=== PATIENT | female | born 1990 | race Caucasian/White ===

== ENCOUNTER 2019-06-11 02:25 | Inpatient (IN) | payer BC ==
[2019-06-11] MEDS ORDERED: Sodium Chloride 0.9% 10 ML Syringe FLUSH PRN ×2 (02:52→19:13)
[2019-06-11] MEDS ORDERED: Nalbuphine 10 MG/1 ML Vial IVPUSH PRN ×2 (02:52→19:13)
[2019-06-11] MEDS ORDERED: Oxytocin/Lactated Ringers 10 UNIT/1,000 ML BAG IV SCH ×2 (03:00)
[2019-06-11] MEDS: Lactated Ringers 1,000 ML IV SCH ×5 (03:25→18:51)
[2019-06-11] MEDS ORDERED: Ampicillin 2 GM in Sodium Chloride 0.9% 100 ML IV ONE (03:30)
[2019-06-11] MEDS ORDERED: ePHEDrine 50 MG/ML SDV IVPUSH PRN ×2 (04:12→21:45)
[2019-06-11] MEDS ORDERED: Ondansetron 4 MG/2 ML SDV IVPUSH PRN (04:12)
[2019-06-11] MEDS ORDERED: fentaNYL/Bupivacaine in NS PF 2 MCG-0.125% 250 ML Premix EPIDUR PRN (04:12)
--- NOTE | 2019-06-11 04:18 | PCM.PREANE ---
Preanesthetic Assessment - Procedure Proposed Procedure: BRYSON - Anesthesia/Transfusion/Family Hx Anesthesia History: Prior Anesthesia Without Reaction Family History of Anesthesia Reaction: No Transfusion History: No Prior Transfusion(s) Intubation History: Unknown - Review of Systems General: No Symptoms Pulmonary: No Symptoms Cardiovascular: No Symptoms Gastrointestinal: No Symptoms Neurological: No Symptoms Other: Reports: Anxiety - Physical Assessment NPO Status Date: 06/10/19 NPO Status Time: 19:00 Vital Signs: Last Vital Signs Temp 36.6 C 06/11/19 02:53 Pulse 100 06/11/19 02:53 Resp 16 06/11/19 02:53 BP 136/73 06/11/19 02:53 Pulse Ox Height: 1.68 m Weight: 101.151 kg ASA Class: 2 Mental Status: Alert & Oriented x3 Thyro-Mental Finger Breadths: 3 Mouth Opening Finger Breadths: 5 ROM/Head Extension: Full Lungs: Clear to Auscultation, Normal Respiratory Effort Cardiovascular: Regular Rate, Regular Rhythm - Lab Values: Laboratory Last Values WBC 12.56 K/mm3 (3.98-10.04) H 06/11/19 03:10 RBC 3.87 M/mm3 (3.98-5.22) L 06/11/19 03:10 Hgb 10.3 gm/dl (11.2-15.7) L 06/11/19 03:10 Hct 31.2 % (34.1-44.9) L 06/11/19 03:10 MCV 80.6 fl (79.4-94.8) 06/11/19 03:10 MCH 26.6 pg (25.6-32.2) 06/11/19 03:10 MCHC 33.0 g/dl (32.2-35.5) 06/11/19 03:10 RDW Std Deviation 42.2 fL (36.4-46.3) 06/11/19 03:10 Plt Count 244 K/mm3 (182-369) 06/11/19 03:10 MPV 9.3 fl (9.4-12.3) L 06/11/19 03:10 Neut % (Auto) 69.8 % (34.0-71.1) 06/11/19 03:10 Lymph % (Auto) 21.2 % (19.3-51.7) 06/11/19 03:10 [place] % (Auto) 8.1 % (4.7-12.5) 06/11/19 03:10 Eos % (Auto) 0.4 (0.7-5.8) L 06/11/19 03:10 Baso % (Auto) 0.2 % (0.1-1.2) 06/11/19 03:10 Neut # (Auto) 8.77 K/mm3 (1.56-6.13) H 06/11/19 03:10 Lymph # (Auto) 2.66 K/mm3 (1.18-3.74) 06/11/19 03:10 [place] # (Auto) 1.02 K/mm3 (0.24-0.36) H 06/11/19 03:10 Eos # (Auto) 0.05 K/mm3 (0.04-0.36) 06/11/19 03:10 Baso # (Auto) 0.02 K/mm3 (0.01-0.08) 06/11/19 03:10 - Allergies Allergies/Adverse Reactions: Allergies Allergy/AdvReac Type Severity Reaction Status Date / Time No Known Allergies Allergy Verified 06/11/19 02:57 - Blood Blood Available: Yes - Anesthesia Plan Free Text/Narrative:: medications: PNV only Pre-Op Medication Ordered: None - Acknowledgements Anesthesia Type Planned: Epidural Pt an Appropriate Candidate for the Planned Anesthesia: Yes Alternatives and Risks of Anesthesia Discussed w Pt/Guardian: Yes Pt/Guardian Understands and Agrees with Anesthesia Plan: Yes PreAnesthesia Questionnaire - Past Health History Medical/Surgical History: Denies 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 USE Smoking Status *Q: Never Smoker Second Hand Smoke Exposure: No Recreational Drug Use History: No - CURRENT (IN HOUSE) MEDS Current Meds: Current Medications Ampicillin Sodium 1 gm/ Sodium (Chloride) 100 mls @ 200 mls/hr IV Q4H PAM Lactated Ringer's (Ringers, Lactated) 1,000 mls @ 100 mls/hr IV ASDIRECTED PAM Last Admin: 06/11/19 03:49 Dose: 100 mls/hr Oxytocin/Lactated Ringer's (Pitocin In Lr 10 Units/1,000 Ml) 10 unit in 1,000 mls @ 12 mls/hr IV TITRATE PAM; Protocol Oxytocin/Lactated Ringer's (Pitocin In Lr 10 Units/1,000 Ml) 10 unit in 1,000 mls @ 500 mls/hr IV .CONTINUOUS PAM Nalbuphine HCl (Nubain) 10 mg IVPUSH Q2H PRN PRN Reason: Pain Sodium Chloride (Saline Flush) 10 ml FLUSH ASDIRECTED PRN PRN Reason: Keep Vein Open Discontinued Medications Ampicillin Sodium 2 gm/ Sodium (Chloride) 100 mls @ 200 mls/hr IV ONETIME ONE Stop: 06/11/19 03:59 Last Admin: 06/11/19 03:25 Dose: 200 mls/hr
[2019-06-11] MEDS: fentaNYL 100 MCG/2 ML SDV EPIDUR PRN ×3 (04:54→13:49)
[2019-06-11] MEDS: Ampicillin 1 GM in Sodium Chloride 0.9% 100 ML IV SCH ×3 (07:33→15:41)
--- NOTE | 2019-06-11 10:55 | PCM.SN ---
- Free Text/Narrative Note: 1040 called to bolus epidural 2ml fentanyl 10ml 0.25% bupivacaine PF per epidural increased gtt to 14ml/hr VSS out of room at 1054 no c/o.
[2019-06-11] MEDS ORDERED: Bupivacaine 0.25% 10 ML SDV ONE (12:00)
--- NOTE | 2019-06-11 13:52 | PCM.SN ---
- Free Text/Narrative Note: 1340 called to bolus epidural 2ml fentanyl 10ml 0.25% bupivacaine PF per epidural gtt at 14ml/hr VSS out of room at 1354 no c/o.
--- NOTE | 2019-06-11 18:22 | PCM.LDHP ---
L&D History of Present Illness - General Date of Service: 06/11/19 Admit Problem/Dx: Patient Status Order with Admit Dx/Problem 06/11/19 02:53 Patient Status [ADT] Routine Admission Diagnosis/Problem Admission Diagnosis/Problem - History of Present Illness Introduction:: 29 year old at 39w3d here in labor. 5 cm. Painful contractions. 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: Social & Family History - Family History Family Medical History: Noncontributory - Tobacco Use Smoking Status *Q: Never Smoker Second Hand Smoke Exposure: No - Recreational Drug Use Recreational Drug Use: No H&P Review of Systems - Review of Systems: Review Of Systems: See Below General: Reports: No Symptoms HEENT: Reports: No Symptoms Pulmonary: Reports: No Symptoms Cardiovascular: Reports: No Symptoms Gastrointestinal: Reports: No Symptoms Genitourinary: Reports: No Symptoms Musculoskeletal: Reports: No Symptoms Skin: Reports: No Symptoms Psychiatric: Reports: No Symptoms Neurological: Reports: No Symptoms Hematologic/Lymphatic: Reports: No Symptoms Immunologic: Reports: No Symptoms L&D Exam - Exam Exam: See Below - Vital Signs Vital Signs: Last Vital Signs Temp 36.6 C 06/11/19 02:53 Pulse 100 06/11/19 02:53 Resp 16 06/11/19 02:53 BP 136/73 06/11/19 02:53 Pulse Ox Weight: 101.151 kg - OB Specific Contraction Intensity: Moderate to Strong Movement: Active Heart Rate (FHR) Variability: Moderate (6-25 bmp) Presentation: Vertex - Humphreys Score Humphreys Score Cervix Position: Midposition Humphreys Score Consistency: Soft Humphreys Score Effacement: 51-70% Humphreys Score Dilation: > 5 cm Humphreys Score 's Station: -2 Humphreys Score Total: 9 - Exam General: Alert, Oriented HEENT: PERRLA, Conjunctiva Clear, EACs Clear, EOMI, Hearing Intact, Mucosa Moist & [place], Nares Patent, Normal Nasal Septum, Posterior Pharynx Clear, TMs Clear Neck: Supple, Trachea Midline Lungs: Clear to Auscultation, Normal Respiratory Effort Cardiovascular: Regular Rate, Regular Rhythm GI/Abdominal Exam: Normal Bowel Sounds, Soft, Non-Tender, No Organomegaly, No Distention, No Abnormal Bruit, No Mass, Pelvis Stable Rectal Exam: Normal Exam Back Exam: Normal Inspection, Full Range of Motion Extremities: Normal Inspection, Normal Range of Motion, Non-Tender, No Pedal Edema, Normal Capillary Refill Skin: Warm, Dry, Intact Neurological: Cranial Nerves Intact, Reflexes Equal Bilateral Psychiatric: Alert, Normal Affect, Normal Mood - Patient Data Lab Results Last 24 hrs: Laboratory Results - last 24 hr 06/11/19 06/11/19 Range/Units 03:10 03:10 WBC 12.56 H (3.98-10.04) K/mm3 RBC 3.87 L (3.98-5.22) M/mm3 Hgb 10.3 L (11.2-15.7) gm/dl Hct 31.2 L (34.1-44.9) % MCV 80.6 (79.4-94.8) fl MCH 26.6 (25.6-32.2) pg MCHC 33.0 (32.2-35.5) g/dl RDW Std Deviation 42.2 (36.4-46.3) fL Plt Count 244 (182-369) K/mm3 MPV 9.3 L (9.4-12.3) fl Neut % (Auto) 69.8 (34.0-71.1) % Lymph % (Auto) 21.2 (19.3-51.7) % [place] % (Auto) 8.1 (4.7-12.5) % Eos % (Auto) 0.4 L (0.7-5.8) Baso % (Auto) 0.2 (0.1-1.2) % Neut # (Auto) 8.77 H (1.56-6.13) K/mm3 Lymph # (Auto) 2.66 (1.18-3.74) K/mm3 [place] # (Auto) 1.02 H (0.24-0.36) K/mm3 Eos # (Auto) 0.05 (0.04-0.36) K/mm3 Baso # (Auto) 0.02 (0.01-0.08) K/mm3 RPR Non-reactive (NONREACTIVE) Result Diagrams: 06/11/19 03:10 Problem List Initiated/Reviewed/Updated: Yes Orders Last 24hrs: Active Orders 24 hr Category Date Time Status Patient Status [ADT] Routine ADT 06/11/19 02:53 Active Activity as Tolerated [RC] PFP Care 06/11/19 02:53 Active Communication Order [RC] ASDIRECTED Care 06/11/19 02:53 Active Heart Tones [RC] ASDIRECTED Care 06/11/19 02:53 Active Non Stress Test [RC] PER UNIT ROUTINE Care 06/11/19 02:53 Active Notify Provider [RC] ASDIRECTED Care 06/11/19 04:11 Active Notify Provider [RC] PFP Care 06/11/19 02:53 Active Notify Provider [RC] PRN Care 06/11/19 02:53 Active Oxygen Therapy [RC] ASDIRECTED Care 06/11/19 04:11 Active Peripheral IV Care [RC] . DIRECTED Care 06/11/19 02:53 Active Pulse Oximetry [RC] ASDIRECTED Care 06/11/19 04:11 Active Vital Signs [RC] PER UNIT ROUTINE Care 06/11/19 02:53 Active Regular Diet [DIET] Diet 06/11/19 Breakfast Active Ampicillin 1 gm Med 06/11/19 07:30 Active Sodium Chloride 0.9% [Normal Saline] 100 ml IV Q4H Bupivicaine/fentaNYL/NS [fentaNYL/Bupivacaine/NS 2 MCG- Med 06/11/19 04:12 Active 0.125% 250 ML] 2 mcg EPIDUR CONTINUOUS PRN Lactated Ringers [Ringers, Lactated] 1,000 ml Med 06/11/19 03:00 Active IV ASDIRECTED Nalbuphine [Nubain] Med 06/11/19 02:52 Active 10 mg IVPUSH Q2H PRN Ondansetron [Zofran] Med 06/11/19 04:12 Active 4 mg IVPUSH ONETIME PRN Oxytocin/Lactated Ringers [Pitocin in LR 10 Units/1,000 Med 06/11/19 03:00 Active ML] 10 unit in 1,000 ml IV .CONTINUOUS Oxytocin/Lactated Ringers [Pitocin in LR 10 Units/1,000 Med 06/11/19 03:00 Active ML] 10 unit in 1,000 ml IV TITRATE Sodium Chloride 0.9% [Saline Flush] Med 06/11/19 02:52 Active 10 ml FLUSH ASDIRECTED PRN ePHEDrine [ePHEDrine sulfate] Med 06/11/19 04:12 Active 5 mg IVPUSH ASDIRECTED PRN fentaNYL [Sublimaze] Med 06/11/19 04:12 Active 100 mcg EPIDUR Q3H PRN Electronic Heart Tones Ext w TOCO [WOMSER] Oth 06/11/19 02:53 Ordered Routine Electronic Heart Tones Internal [WOMSER] Per Unit Ot 06/11/19 02:53 Ordered Routine Peripheral IV Insertion Adult [OM.PC] Routine Ot 06/11/19 02:53 Ordered Resuscitation Status Routine Resus Stat 06/11/19 02:52 Ordered Medication Orders Ephedrine Sulfate (Ephedrine Sulfate) 5 mg IVPUSH ASDIRECTED PRN PRN Reason: Hypotension Fentanyl (Sublimaze) 100 mcg EPIDUR Q3H PRN PRN Reason: Pain Last Admin: 06/11/19 13:49 Dose: 100 mcg Admin: 06/11/19 10:48 Dose: 100 mcg Admin: 06/11/19 04:54 Dose: 100 mcg Fentanyl/Bupivacaine HCl (Fentanyl/Bupivacaine/Ns 2 Mcg-0.125% 250 Ml) 2 mcg EPIDUR CONTINUOUS PRN PRN Reason: Pain Last Admin: 06/11/19 04:54 Dose: 2 mcg Ampicillin Sodium 1 gm/ Sodium (Chloride) 100 mls @ 200 mls/hr IV Q4H [facility] Last Admin: 06/11/19 15:41 Dose: 200 mls/hr Infusion: 06/11/19 12:20 Dose: 200 mls/hr Admin: 06/11/19 11:50 Dose: 200 mls/hr Infusion: 06/11/19 08:03 Dose: 200 mls/hr Admin: 06/11/19 07:33 Dose: 200 mls/hr Lactated Ringer's (Ringers, Lactated) 1,000 mls @ 100 mls/hr IV ASDIRECTED PAM Last Admin: 06/11/19 10:36 Dose: 100 mls/hr Infusion: 06/11/19 10:36 Dose: 100 mls/hr Admin: 06/11/19 05:01 Dose: 100 mls/hr Infusion: 06/11/19 05:01 Dose: 100 mls/hr Admin: 06/11/19 03:49 Dose: 100 mls/hr Infusion: 06/11/19 03:49 Dose: 100 mls/hr Admin: 06/11/19 03:25 Dose: 100 mls/hr Oxytocin/Lactated Ringer's (Pitocin In Lr 10 Units/1,000 Ml) 10 unit in 1,000 mls @ 12 mls/hr IV TITRATE PAM; Protocol Last Titration: 06/11/19 16:30 Dose: 11 munits/min, 66 mls/hr Titration: 06/11/19 15:00 Dose: 10 munits/min, 60 mls/hr Titration: 06/11/19 14:16 Dose: 9 munits/min, 54 mls/hr Titration: 06/11/19 13:00 Dose: 8 munits/min, 48 mls/hr Titration: 06/11/19 12:30 Dose: 6 munits/min, 36 mls/hr Titration: 06/11/19 11:20 Dose: 4 munits/min, 24 mls/hr Admin: 06/11/19 10:36 Dose: 2 munits/min, 12 mls/hr Oxytocin/Lactated Ringer's (Pitocin In Lr 10 Units/1,000 Ml) 10 unit in 1,000 mls @ 500 mls/hr IV .CONTINUOUS PAM Nalbuphine HCl (Nubain) 10 mg IVPUSH Q2H PRN PRN Reason: Pain Ondansetron HCl (Zofran) 4 mg IVPUSH ONETIME PRN PRN Reason: Nausea/Vomiting Last Admin: 06/11/19 13:18 Dose: 4 mg Sodium Chloride (Saline Flush) 10 ml FLUSH ASDIRECTED PRN PRN Reason: Keep Vein Open Assessment/Plan Comment:: Term labor. Admit. CBC. IVF. Anesthesia per patient desire.
--- NOTE | 2019-06-11 19:06 | PCM.SN ---
- Free Text/Narrative Note: Patient pushing x3 hours. Initial descent of head but over last 45 minutes minimal progress. Risks benefits and alternatives discussed, will proceed with section.
[2019-06-11] MEDS: Metoclopramide 10 MG/2 ML SDV ONE ×2 (19:11→19:13)
[2019-06-11] MEDS: Citric Acid/Sodium Citrate Solution 30 ML Cup ONE ×2 (19:11→19:13)
[2019-06-11] MEDS ORDERED: Citric Acid/Sodium Citrate Solution 30 ML Cup PO ONE ×2 (19:12→19:13)
[2019-06-11] MEDS ORDERED: Metoclopramide 10 MG/2 ML SDV IVPUSH ONE ×2 (19:12→19:13)
[2019-06-11] MEDS ORDERED: Lactated Ringers 1,000 ML IV SCH (19:15)
[2019-06-11] MEDS ORDERED: ceFAZolin 1 GM Vial ONE ×2 (19:18→19:19)
[2019-06-11] MEDS ORDERED: Morphine PF 10 MG/10 ML SDV ONE (19:18)
[2019-06-11] MEDS ORDERED: Oxytocin 10 Units/1 ML SDV ONE (19:20)
[2019-06-11] MEDS ORDERED: Ketorolac 30 MG/ML SDV ONE (19:20)
[2019-06-11] MEDS ORDERED: Lidocaine 2% with EPINEPHrine 1:200,000 20 ML SDV ONE (19:21)
[2019-06-11] MEDS ORDERED: Bupivacaine 0.5% 30 ML SDV ONE (19:22)
[2019-06-11] MEDS ORDERED: Methylergonovine 0.2 MG/1 ML Amp ONE (20:05)
[2019-06-11] MEDS ORDERED: Phenylephrine/Normal Saline 100 MCG/ML 10 ML Syringe ONE (20:16)
[2019-06-11] MEDS ORDERED: diphenhydrAMINE 50 MG/ML SDV IVPUSH PRN ×2 (20:48→21:45)
--- NOTE | 2019-06-11 20:49 | PCM.POSTAN ---
POST ANESTHESIA ASSESSMENT - MENTAL STATUS Mental Status: Alert, Oriented - VITAL SIGNS Vital Signs: Last Vital Signs Temp 36.6 C 06/11/19 02:53 Pulse 100 06/11/19 02:53 Resp 16 06/11/19 02:53 BP 136/73 06/11/19 02:53 Pulse Ox - RESPIRATORY Respiratory Status: Respiratory Rate WNL, Airway Patent, O2 Saturation Stable, Supplemental Oxygen - CARDIOVASCULAR CV Status: Pulse Rate WNL, Blood Pressure Stable - GASTROINTESTINAL GI Status: No Symptoms - PAIN Pain Score: 0 - POST OP HYDRATION Hydration Status: Adequate & Stable - OBSERVATIONS Free Text/Narrative:: no anesthesia complications noted
--- NOTE | 2019-06-11 20:52 | PCM.OPNOTE ---
- General Post-Op/Procedure Note Date of Surgery/Procedure: 06/11/19 Operative Procedure(s): primary section Findings: Viable male, weight 10#1oz, 9/9 APGARS at 1960. Pre Op Diagnosis: failure to descend Post-Op Diagnosis: Same Anesthesia Technique: Spinal Primary Surgeon: Priya Choi Anesthesia Provider: Jeancarlos Dee Press Machine Operator: Serene Sotomayor Fluid Replacement, Intraop: 2,000 Output, Urine Amount: 100 EBL in mLs: 1,100 Complications: None Condition: Good Free Text/Narrative:: Intake & Output 06/11/19 06/11/19 06/11/19 06:59 14:59 22:59 Intake Total 4360 Output Total 150 Balance 4360 -150 The patient was taken to the operating room where epidural anesthesia was dosed to surgical levels without difficulty. The patient was prepped and draped in the usual sterile fashion in the dorsal supine position with a leftward tilt. A Pfannenstiel skin incision was made with the scalpel and carried through to the underlying layer of fascia. The fascia was incised in the midline and extended laterally using Finn scissors. Candi clamps were used to elevate the superior aspect of the fascial incision, which was elevated, and the underlying rectus muscles were dissected off bluntly and using Finn scissors. Attention was then turned to the inferior aspect of the fascial incision, which in similar fashion was grasped with Candi clamps, elevated, and the underlying rectus muscles were dissected off bluntly and using the finn. The rectus muscles were dissected in the midline. The peritoneum was entered bluntly; this incision was extended superiorly and inferiorly with good visualization of the bladder. The bladder blade was inserted. The vesicouterine peritoneum was identified and entered sharply using Metzenbaum scissors. This incision was extended laterally and the bladder flap was created digitally. The bladder blade was reinserted. The lower uterine segment was incised in a transverse fashion using the scalpel and with digital traction. Clear fluid was noted. The infant was subsequently delivered by flexing the head to the incision. Body and shoulders followed without difficulty. The cord was clamped and cut. 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 The placenta was delivered spontaneously intact with a three-vessel cord noted. The uterus was exteriorized and cleared of all clots and debris. The uterine incision was repaired in 2 layers using 0 monocryl. Hemostasis was visualized. One additional figure of eight used at right aspect of incision to render hemostasis. Hemostasis was visualized bilaterally. The uterus was returned to the abdomen. The uterine incision was reexamined and it was noted to be hemostatic. The pelvis was copiously irrigated. The fascia was closed with 1 PDS suture, and the skin was closed with 3-0 monocryl. Sponge, lap, and instrument counts were correct x2. The patient was stable at the completion of the procedure and was subsequently transferred to the recovery room in stable condition.
[2019-06-11] MEDS ORDERED: Acetaminophen/oxyCODONE 325-5 MG Tab PO PRN (21:45)
[2019-06-11] MEDS ORDERED: Lanolin 100% Cream 7 GM Tube TOP PRN (21:45)
[2019-06-11] MEDS ORDERED: Naloxone 0.4 MG/ML SDV IVPUSH PRN (21:45)
[2019-06-11] MEDS ORDERED: Dextrose 5%-Lactated Ringers 1,000 ML IV SCH (21:45)
[2019-06-12] MEDS: Ketorolac 30 MG/ML SDV IVPUSH SCH ×3 (02:15→16:05)
--- NOTE | 2019-06-12 06:37 | PCM.PNPP ---
- General Info Date of Service: 06/12/19 Functional Status: Reports: Pain Controlled - Review of Systems General: Reports: No Symptoms HEENT: Reports: No Symptoms Pulmonary: Reports: No Symptoms Cardiovascular: Reports: No Symptoms Gastrointestinal: Reports: No Symptoms Genitourinary: Reports: No Symptoms Musculoskeletal: Reports: No Symptoms Skin: Reports: No Symptoms Neurological: Reports: No Symptoms Psychiatric: Reports: No Symptoms - General Info Date of Service: 06/12/19 - Patient Data Vital Signs - Most Recent: Last Vital Signs Temp 37.1 C 06/11/19 21:40 Pulse 88 06/12/19 04:26 Resp 18 06/11/19 21:40 BP 104/70 06/12/19 04:26 Pulse Ox 98 06/12/19 04:26 Weight - Most Recent: 101.151 kg I&O - Last 24 Hours: Intake & Output 06/11/19 06/11/19 06/12/19 14:59 22:59 06:59 Intake Total 4360 3000 Output Total 350 450 Balance 4360 2650 -450 Lab Results - Last 24 Hours: Laboratory Results - last 24 hr 06/11/19 06/11/19 Range/Units 03:10 03:10 RPR Non-reactive (NONREACTIVE) Blood Type O POSITIVE Gel Antibody Screen Negative Med Orders - Current: Current Medications Diphenhydramine HCl (Benadryl) 25 mg IVPUSH Q6H PRN PRN Reason: Itching or Nausea Emollient Ointment (Lansinoh Hpa) 0 gm TOP ASDIRECTED PRN PRN Reason: Sore Nipples Ephedrine Sulfate (Ephedrine Sulfate) 5 mg IVPUSH SEECOMMENT PRN PRN Reason: Other Ibuprofen (Motrin) 600 mg PO Q6H PRN PRN Reason: mild pain or fever Ketorolac Tromethamine (Toradol) 30 mg IVPUSH Q6H PAM Stop: 06/12/19 14:01 Last Admin: 06/12/19 02:15 Dose: 30 mg Naloxone HCl (Narcan) 0.1 mg IVPUSH SEECOMMENT PRN PRN Reason: Respiratory Depression Oxycodone/Acetaminophen (Percocet 325-5 Mg) 2 tab PO Q6H PRN PRN Reason: Pain (moderate 4-6) Discontinued Medications Bupivacaine HCl (Marcaine 0.5%) Confirm Administered Dose 30 ml .ROUTE .STK-MED ONE Stop: 06/11/19 19:23 Last Admin: 06/11/19 19:56 Dose: 20 ml Cefazolin Sodium (Ancef) Confirm Administered Dose 2 gm .ROUTE .STK-MED ONE Stop: 06/11/19 19:19 Cefazolin Sodium (Ancef) Confirm Administered Dose 2 gm .ROUTE .STK-MED ONE Stop: 06/11/19 19:20 Citric Acid/Sodium Citrate (Bicitra Solution) Confirm Administered Dose 30 ml .ROUTE .STK-MED ONE Stop: 06/11/19 19:06 Last Admin: 06/11/19 19:13 Dose: Not Given Citric Acid/Sodium Citrate (Bicitra Solution) 30 ml PO ONETIME ONE Stop: 06/11/19 19:13 Last Admin: 06/11/19 19:21 Dose: 30 ml Citric Acid/Sodium Citrate (Bicitra Solution) 30 ml PO ONETIME ONE Stop: 06/11/19 19:14 Diphenhydramine HCl (Benadryl) 25 mg IVPUSH Q6H PRN PRN Reason: Itching Ephedrine Sulfate (Ephedrine Sulfate) 5 mg IVPUSH ASDIRECTED PRN PRN Reason: Hypotension Fentanyl (Sublimaze) 100 mcg EPIDUR Q3H PRN PRN Reason: Pain Last Admin: 06/11/19 13:49 Dose: 100 mcg Fentanyl/Bupivacaine HCl (Fentanyl/Bupivacaine/Ns 2 Mcg-0.125% 250 Ml) 2 mcg EPIDUR CONTINUOUS PRN PRN Reason: Pain Last Admin: 06/11/19 04:54 Dose: 2 mcg Ampicillin Sodium 2 gm/ Sodium (Chloride) 100 mls @ 200 mls/hr IV ONETIME ONE Stop: 06/11/19 03:59 Last Admin: 06/11/19 03:25 Dose: 200 mls/hr Ampicillin Sodium 1 gm/ Sodium (Chloride) 100 mls @ 200 mls/hr IV Q4H [facility] Last Admin: 06/11/19 15:41 Dose: 200 mls/hr Lactated Ringer's (Ringers, Lactated) 1,000 mls @ 100 mls/hr IV ASDIRECTED PAM Last Admin: 06/11/19 18:51 Dose: 250 mls/hr Oxytocin/Lactated Ringer's (Pitocin In Lr 10 Units/1,000 Ml) 10 unit in 1,000 mls @ 12 mls/hr IV TITRATE PAM; Protocol Last Titration: 06/11/19 16:30 Dose: 11 munits/min, 66 mls/hr Oxytocin/Lactated Ringer's (Pitocin In Lr 10 Units/1,000 Ml) 10 unit in 1,000 mls @ 500 mls/hr IV .CONTINUOUS PAM Lactated Ringer's (Ringers, Lactated) 1,000 mls @ 125 mls/hr IV ASDIRECTED PAM Dextrose/Lactated Ringer's (Dextrose 5%-Lactated Ringers) 1,000 mls @ 125 mls/ hr IV ASDIRECTED PAM Stop: 06/12/19 05:44 Last Admin: 06/12/19 02:17 Dose: 125 mls/hr Ketorolac Tromethamine (Toradol) Confirm Administered Dose 30 mg .ROUTE .STK- MED ONE Stop: 06/11/19 19:21 Lidocaine/Epinephrine (Xylocaine-Mpf 2%-Epi 1:200,000) Confirm Administered Dose 20 ml .ROUTE .STK-MED ONE Stop: 06/11/19 19:22 Methylergonovine Maleate (Methergine) Confirm Administered Dose 0.2 mg .ROUTE .STK-MED ONE Stop: 06/11/19 20:06 Last Admin: 06/11/19 20:10 Dose: 0.2 mg Metoclopramide HCl (Reglan) Confirm Administered Dose 10 mg .ROUTE .STK-MED ONE Stop: 06/11/19 19:06 Last Admin: 06/11/19 19:13 Dose: Not Given Metoclopramide HCl (Reglan) 10 mg IVPUSH ONETIME ONE Stop: 06/11/19 19:13 Last Admin: 06/11/19 19:21 Dose: 10 mg Metoclopramide HCl (Reglan) 10 mg IVPUSH ONETIME ONE Stop: 06/11/19 19:14 Morphine Sulfate (Duramorph Pf) Confirm Administered Dose 10 mg .ROUTE .STK-MED ONE Stop: 06/11/19 19:19 Nalbuphine HCl (Nubain) 10 mg IVPUSH Q2H PRN PRN Reason: Pain Nalbuphine HCl (Nubain) 10 mg IVPUSH Q2H PRN PRN Reason: Pain Ondansetron HCl (Zofran) 4 mg IVPUSH ONETIME PRN PRN Reason: Nausea/Vomiting Last Admin: 06/11/19 13:18 Dose: 4 mg Oxytocin (Pitocin) Confirm Administered Dose 10 unit .ROUTE .STK-MED ONE Stop: 06/11/19 19:21 Phenylephrine HCl (Phenylephrine In Ns 100 Mcg/Ml) Confirm Administered Dose 1 mg .ROUTE .STK-MED ONE Stop: 06/11/19 20:17 Sodium Chloride (Saline Flush) 10 ml FLUSH ASDIRECTED PRN PRN Reason: Keep Vein Open Sodium Chloride (Saline Flush) 10 ml FLUSH ASDIRECTED PRN PRN Reason: Keep Vein Open - Interaction Disposition, : to Nursery Support Person: - Recovery Exam Fundal Tone: Firm Fundal Level: 1 Fingerbreadths Below Umbilicus Fundal Placement: Midline Lochia Amount: Moderate Lochia Color: Rubra/Red Perineum Description: Edematous Bladder Status: Indwelling Catheter in Place Urinary Elimination: Indwelling Catheter - Exam General: Alert, Oriented HEENT: Pupils Equal Neck: Supple Lungs: Clear to Auscultation, Normal Respiratory Effort Cardiovascular: Regular Rate, Regular Rhythm GI/Abdominal Exam: Normal Bowel Sounds, Soft, Non-Tender, No Organomegaly, No Distention, No Abnormal Bruit, No Mass, Pelvis Stable Extremities: Normal Inspection, Normal Range of Motion, Non-Tender, No Pedal Edema, Normal Capillary Refill Skin: Warm, Dry, Intact Neurological: No New Focal Deficit - Problem List Review Problem List Initiated/Reviewed/Updated: Yes - My Orders Last 24 Hours: My Active Orders 06/11/19 19:14 Heart Tones [RC] PER UNIT ROUTINE Vital Signs [RC] PFP 06/11/19 19:15 Peripheral IV Care [RC] . DIRECTED 06/11/19 19:45 Insert Garcia Catheter [Insert Urinary Catheter] [OM.PC] Q24H 06/11/19 21:21 Urinary Catheter Assessment [RC] ASDIRECTED 06/11/19 21:45 Communication Order [RC] PER UNIT ROUTINE Communication Order [RC] PER UNIT ROUTINE Communication Order [RC] PER UNIT ROUTINE Notify Provider Intake and Out [RC] ASDIRECTED Vital Signs [RC] PER UNIT ROUTINE Acetaminophen/oxyCODONE [Percocet 325-5 MG] 2 tab PO Q6H PRN Lanolin [Lansinoh HPA] See Dose Instructions TOP ASDIRECTED PRN Naloxone [Narcan] 0.1 mg IVPUSH SEECOMMENT PRN diphenhydrAMINE [Benadryl] 25 mg IVPUSH Q6H PRN ePHEDrine [ePHEDrine sulfate] 5 mg IVPUSH SEECOMMENT PRN Assess Lochia [WOMSER] Per Unit Routine Assess Uterine Involution [WOMSER] Per Unit Routine Medication Administration Instruction [OM.PC] Routine 06/11/19 Breakfast Regular Diet [DIET] 06/12/19 02:00 Ketorolac [Toradol] 30 mg IVPUSH Q6H 06/12/19 05:12 CBC WITH AUTO DIFF [HEME] AM 06/12/19 20:00 Ibuprofen [Motrin] 600 mg PO Q6H PRN 06/12/19 20:54 Urinary Catheter Removal [RC] Per Unit Routine - Assessment Assessment:: Term labor, failure to descend with pushing and 1ltcs of 10#1oz infant. Doing well. More than average EBL. Asymptomatic. Await CBC - Plan Plan:: Term labor. Admit. CBC. IVF. Anesthesia per patient desire.
--- NOTE | 2019-06-12 09:02 | PCM48HPAN ---
Post Anesthesia Note - EVALUATION WITHIN 48HRS OF ANESTHETIC Vital Signs in Normal Range: Yes Patient Participated in Evaluation: Yes Respiratory Function Stable: Yes Airway Patent: Yes Cardiovascular Function Stable: Yes Hydration Status Stable: Yes Pain Control Satisfactory: Yes Nausea and Vomiting Control Satisfactory: Yes Mental Status Recovered: Yes Vital Signs: Last Vital Signs Temp 37.1 C 06/11/19 21:40 Pulse 88 06/12/19 04:26 Resp 18 06/11/19 21:40 BP 104/70 06/12/19 04:26 Pulse Ox 98 06/12/19 04:26
[2019-06-12] MEDS: Ampicillin 1 GM in Sodium Chloride 0.9% 100 ML IV SCH (09:55)
[2019-06-12] MEDS ORDERED: Sodium Chloride 0.9% 500 ML IV ONE (12:00)
[2019-06-12] MEDS: Ibuprofen 600 MG Tab PO PRN (22:14)
[2019-06-13] MEDS: Ibuprofen 600 MG Tab PO PRN ×3 (04:48→19:07)
--- NOTE | 2019-06-13 06:44 | PCM.PNPP ---
- General Info Date of Service: 06/13/19 Subjective Update: Somewhat better energy. Feeling improved. Pain controlled. Significant issues with nursing. Functional Status: Reports: Pain Controlled - Review of Systems General: Reports: Other (less dizzy) HEENT: Reports: No Symptoms Pulmonary: Reports: No Symptoms Cardiovascular: Reports: No Symptoms Gastrointestinal: Reports: No Symptoms Genitourinary: Reports: No Symptoms Musculoskeletal: Reports: No Symptoms Skin: Reports: No Symptoms Neurological: Reports: No Symptoms Psychiatric: Reports: No Symptoms - General Info Date of Service: 06/13/19 - Patient Data Vital Signs - Most Recent: Last Vital Signs Temp 36.7 C 06/13/19 02:41 Pulse 91 06/13/19 02:41 Resp 16 06/13/19 02:41 BP 110/61 06/13/19 02:41 Pulse Ox 97 06/13/19 02:41 Weight - Most Recent: 101.151 kg I&O - Last 24 Hours: Intake & Output 06/12/19 06/12/19 06/13/19 14:59 22:59 06:59 Intake Total 180 660 Output Total 250 950 Balance -70 -290 Lab Results - Last 24 Hours: Laboratory Results - last 24 hr 06/11/19 06/12/19 06/12/19 Range/Units 03:10 05:12 14:35 WBC 18.60 H (3.98-10.04) K/mm3 RBC 2.65 L (3.98-5.22) M/mm3 Hgb 6.8 L* D (11.2-15.7) gm/dl Hct 22.0 L (34.1-44.9) % MCV 83.0 (79.4-94.8) fl MCH 25.7 (25.6-32.2) pg MCHC 30.9 L (32.2-35.5) g/dl RDW Std Deviation 42.6 (36.4-46.3) fL Plt Count 214 (182-369) K/mm3 MPV 9.8 (9.4-12.3) fl Neut % (Auto) 80.2 H (34.0-71.1) % Lymph % (Auto) 13.8 L (19.3-51.7) % [place] % (Auto) 5.5 (4.7-12.5) % Eos % (Auto) 0.1 L (0.7-5.8) Baso % (Auto) 0.1 (0.1-1.2) % Neut # (Auto) 14.92 H (1.56-6.13) K/mm3 Lymph # (Auto) 2.57 (1.18-3.74) K/mm3 [place] # (Auto) 1.02 H (0.24-0.36) K/mm3 Eos # (Auto) 0.01 L (0.04-0.36) K/mm3 Baso # (Auto) 0.02 (0.01-0.08) K/mm3 Manual Slide Review Abnormal smear Urine Color Yellow (Yellow) Urine Appearance Turbid H (Clear) Urine pH 5.5 (5.0-8.0) Ur Specific Nabb > or = 1.030 (1.005-1.030) Urine Protein Trace H (Negative) Urine Glucose (UA) Negative (Negative) Urine Ketones Negative (Negative) Urine Occult Blood 2+ H (Negative) Urine Nitrite Negative (Negative) Urine Bilirubin Negative (Negative) Urine Urobilinogen 0.2 (0.2-1.0) Ur Leukocyte Esterase Negative (Negative) Urine RBC 5-10 H (0-5) /hpf Urine WBC 5-10 H (0-5) /hpf Ur Squamous Epith Cells 0-5 (0-5) /hpf Urine Bacteria Few (FEW) /hpf Urine Mucus Many H (FEW) /hpf Blood Type O POSITIVE Gel Antibody Screen Negative Crossmatch See Detail 06/13/19 Range/Units 05:30 WBC 16.91 H (3.98-10.04) K/mm3 RBC 2.65 L (3.98-5.22) M/mm3 Hgb 7.1 L* (11.2-15.7) gm/dl Hct 22.2 L (34.1-44.9) % MCV 83.8 (79.4-94.8) fl MCH 26.8 (25.6-32.2) pg MCHC 32.0 L (32.2-35.5) g/dl RDW Std Deviation 43.3 (36.4-46.3) fL Plt Count 191 (182-369) K/mm3 MPV 9.4 (9.4-12.3) fl Neut % (Auto) 76.8 H (34.0-71.1) % Lymph % (Auto) 16.0 L (19.3-51.7) % [place] % (Auto) 6.2 (4.7-12.5) % Eos % (Auto) 0.5 L (0.7-5.8) Baso % (Auto) 0.1 (0.1-1.2) % Neut # (Auto) 13.00 H (1.56-6.13) K/mm3 Lymph # (Auto) 2.70 (1.18-3.74) K/mm3 [place] # (Auto) 1.04 H (0.24-0.36) K/mm3 Eos # (Auto) 0.09 (0.04-0.36) K/mm3 Baso # (Auto) 0.02 (0.01-0.08) K/mm3 Manual Slide Review Abnormal smear Urine Color (Yellow) Urine Appearance (Clear) Urine pH (5.0-8.0) Ur Specific Nabb (1.005-1.030) Urine Protein (Negative) Urine Glucose (UA) (Negative) Urine Ketones (Negative) Urine Occult Blood (Negative) Urine Nitrite (Negative) Urine Bilirubin (Negative) Urine Urobilinogen (0.2-1.0) Ur Leukocyte Esterase (Negative) Urine RBC (0-5) /hpf Urine WBC (0-5) /hpf Ur Squamous Epith Cells (0-5) /hpf Urine Bacteria (FEW) /hpf Urine Mucus (FEW) /hpf Blood Type Gel Antibody Screen Crossmatch Med Orders - Current: Current Medications Diphenhydramine HCl (Benadryl) 25 mg IVPUSH Q6H PRN PRN Reason: Itching or Nausea Emollient Ointment (Lansinoh Hpa) 0 gm TOP ASDIRECTED PRN PRN Reason: Sore Nipples Ephedrine Sulfate (Ephedrine Sulfate) 5 mg IVPUSH SEECOMMENT PRN PRN Reason: Other Ibuprofen (Motrin) 600 mg PO Q6H PRN PRN Reason: mild pain or fever Last Admin: 06/13/19 04:48 Dose: 600 mg Naloxone HCl (Narcan) 0.1 mg IVPUSH SEECOMMENT PRN PRN Reason: Respiratory Depression Oxycodone/Acetaminophen (Percocet 325-5 Mg) 2 tab PO Q6H PRN PRN Reason: Pain (moderate 4-6) Discontinued Medications Bupivacaine HCl (Marcaine 0.5%) Confirm Administered Dose 30 ml .ROUTE .STK-MED ONE Stop: 06/11/19 19:23 Last Admin: 06/11/19 19:56 Dose: 20 ml Bupivacaine HCl (Sensorcaine-Mpf 0.25%) 10 ml .ROUTE .STK-MED ONE Stop: 06/11/19 12:01 Cefazolin Sodium (Ancef) Confirm Administered Dose 2 gm .ROUTE .STK-MED ONE Stop: 06/11/19 19:19 Cefazolin Sodium (Ancef) Confirm Administered Dose 2 gm .ROUTE .STK-MED ONE Stop: 06/11/19 19:20 Citric Acid/Sodium Citrate (Bicitra Solution) Confirm Administered Dose 30 ml .ROUTE .STK-MED ONE Stop: 06/11/19 19:06 Last Admin: 06/11/19 19:13 Dose: Not Given Citric Acid/Sodium Citrate (Bicitra Solution) 30 ml PO ONETIME ONE Stop: 06/11/19 19:13 Last Admin: 06/11/19 19:21 Dose: 30 ml Citric Acid/Sodium Citrate (Bicitra Solution) 30 ml PO ONETIME ONE Stop: 06/11/19 19:14 Last Admin: 06/12/19 09:55 Dose: Not Given Diphenhydramine HCl (Benadryl) 25 mg IVPUSH Q6H PRN PRN Reason: Itching Ephedrine Sulfate (Ephedrine Sulfate) 5 mg IVPUSH ASDIRECTED PRN PRN Reason: Hypotension Fentanyl (Sublimaze) 100 mcg EPIDUR Q3H PRN PRN Reason: Pain Last Admin: 06/11/19 13:49 Dose: 100 mcg Fentanyl/Bupivacaine HCl (Fentanyl/Bupivacaine/Ns 2 Mcg-0.125% 250 Ml) 2 mcg EPIDUR CONTINUOUS PRN PRN Reason: Pain Last Admin: 06/11/19 04:54 Dose: 2 mcg Ampicillin Sodium 2 gm/ Sodium (Chloride) 100 mls @ 200 mls/hr IV ONETIME ONE Stop: 06/11/19 03:59 Last Admin: 06/11/19 03:25 Dose: 200 mls/hr Ampicillin Sodium 1 gm/ Sodium (Chloride) 100 mls @ 200 mls/hr IV Q4H PAM Last Admin: 06/12/19 09:55 Dose: Not Given Lactated Ringer's (Ringers, Lactated) 1,000 mls @ 100 mls/hr IV ASDIRECTED PAM Last Admin: 06/11/19 18:51 Dose: 250 mls/hr Oxytocin/Lactated Ringer's (Pitocin In Lr 10 Units/1,000 Ml) 10 unit in 1,000 mls @ 12 mls/hr IV TITRATE PAM; Protocol Last Titration: 06/11/19 16:30 Dose: 11 munits/min, 66 mls/hr Oxytocin/Lactated Ringer's (Pitocin In Lr 10 Units/1,000 Ml) 10 unit in 1,000 mls @ 500 mls/hr IV .CONTINUOUS PAM Lactated Ringer's (Ringers, Lactated) 1,000 mls @ 125 mls/hr IV ASDIRECTED PAM Dextrose/Lactated Ringer's (Dextrose 5%-Lactated Ringers) 1,000 mls @ 125 mls/ hr IV ASDIRECTED PAM Stop: 06/12/19 05:44 Last Admin: 06/12/19 02:17 Dose: 125 mls/hr Sodium Chloride (Normal Saline) 500 mls @ 125 mls/hr IV ASDIRECTED ONE Stop: 06/12/19 15:59 Last Admin: 06/12/19 15:15 Dose: 250 mls/hr Ketorolac Tromethamine (Toradol) Confirm Administered Dose 30 mg .ROUTE .STK- MED ONE Stop: 06/11/19 19:21 Ketorolac Tromethamine (Toradol) 30 mg IVPUSH Q6H [facility] Stop: 06/12/19 14:01 Last Admin: 06/12/19 16:05 Dose: 30 mg Lidocaine/Epinephrine (Xylocaine-Mpf 2%-Epi 1:200,000) Confirm Administered Dose 20 ml .ROUTE .STK-MED ONE Stop: 06/11/19 19:22 Methylergonovine Maleate (Methergine) Confirm Administered Dose 0.2 mg .ROUTE .STK-MED ONE Stop: 06/11/19 20:06 Last Admin: 06/11/19 20:10 Dose: 0.2 mg Metoclopramide HCl (Reglan) Confirm Administered Dose 10 mg .ROUTE .STK-MED ONE Stop: 06/11/19 19:06 Last Admin: 06/11/19 19:13 Dose: Not Given Metoclopramide HCl (Reglan) 10 mg IVPUSH ONETIME ONE Stop: 06/11/19 19:13 Last Admin: 06/11/19 19:21 Dose: 10 mg Metoclopramide HCl (Reglan) 10 mg IVPUSH ONETIME ONE Stop: 06/11/19 19:14 Last Admin: 06/12/19 09:55 Dose: Not Given Morphine Sulfate (Duramorph Pf) Confirm Administered Dose 10 mg .ROUTE .STK-MED ONE Stop: 06/11/19 19:19 Nalbuphine HCl (Nubain) 10 mg IVPUSH Q2H PRN PRN Reason: Pain Nalbuphine HCl (Nubain) 10 mg IVPUSH Q2H PRN PRN Reason: Pain Ondansetron HCl (Zofran) 4 mg IVPUSH ONETIME PRN PRN Reason: Nausea/Vomiting Last Admin: 06/11/19 13:18 Dose: 4 mg Oxytocin (Pitocin) Confirm Administered Dose 10 unit .ROUTE .STK-MED ONE Stop: 06/11/19 19:21 Phenylephrine HCl (Phenylephrine In Ns 100 Mcg/Ml) Confirm Administered Dose 1 mg .ROUTE .STK-MED ONE Stop: 06/11/19 20:17 Sodium Chloride (Saline Flush) 10 ml FLUSH ASDIRECTED PRN PRN Reason: Keep Vein Open Sodium Chloride (Saline Flush) 10 ml FLUSH ASDIRECTED PRN PRN Reason: Keep Vein Open - Interaction Disposition, : [place] to Nursery Support Person: - Recovery Exam Fundal Tone: Firm Fundal Level: 1 Fingerbreadths Below Umbilicus Fundal Placement: Midline Lochia Amount: Scant, Small Lochia Color: Rubra/Red Perineum Description: Intact, Minimal Bruising/Swelling Episiotomy/Laceration: None Bladder Status: Voiding Urinary Elimination: Voided Other Urinary Elimination, : has not voided yet post catheter removal - Exam General: Alert, Oriented HEENT: Pupils Equal Neck: Supple Lungs: Clear to Auscultation, Normal Respiratory Effort Cardiovascular: Regular Rate, Regular Rhythm GI/Abdominal Exam: Normal Bowel Sounds, Soft, Non-Tender, No Organomegaly, No Distention, No Abnormal Bruit, No Mass, Pelvis Stable Extremities: Normal Inspection, Normal Range of Motion, Non-Tender Skin: Warm, Dry, Intact Wound/Incisions: Healing Well Neurological: No New Focal Deficit Psy/Mental Status: Alert, Normal Affect, Normal Mood - Problem List Review Problem List Initiated/Reviewed/Updated: Yes - My Orders Last 24 Hours: My Active Orders 06/12/19 11:52 Transfuse Red Blood Cells [COMM] Stat 06/12/19 20:00 Ibuprofen [Motrin] 600 mg PO Q6H PRN - Assessment Assessment:: Doing well. No issues. Tolerating anemia. Feeling better. Pain controlled.
[2019-06-14] MEDS: Ibuprofen 600 MG Tab PO PRN ×2 (02:33→11:53)
[2019-06-14] MEDS: Docusate Sodium 100 MG Cap PO PRN ×2 (02:33→11:53)
--- NOTE | 2019-06-14 07:47 | PCM.PNPP ---
- General Info Date of Service: 06/14/19 Functional Status: Reports: Pain Controlled, Tolerating Diet, Ambulating, Urinating - Review of Systems General: Reports: Weakness (mild) Pulmonary: Reports: No Symptoms Cardiovascular: Reports: No Symptoms Gastrointestinal: Reports: No Symptoms Genitourinary: Reports: No Symptoms Musculoskeletal: Reports: No Symptoms Neurological: Reports: No Symptoms - Patient Data Vital Signs - Most Recent: Last Vital Signs Temp 36.5 C 06/14/19 02:35 Pulse 80 06/14/19 02:35 Resp 16 06/14/19 02:35 BP 110/68 06/14/19 02:35 Pulse Ox 98 06/14/19 02:35 Weight - Most Recent: 101.151 kg I&O - Last 24 Hours: Intake & Output 06/13/19 06/14/19 06/14/19 22:59 06:59 14:59 Intake Total 320 Balance 320 Lab Results - Last 24 Hours: Laboratory Results - last 24 hr 06/14/19 Range/Units 05:25 WBC 13.46 H (3.98-10.04) K/mm3 RBC 2.49 L (3.98-5.22) M/mm3 Hgb 6.7 L* (11.2-15.7) gm/dl Hct 21.0 L (34.1-44.9) % MCV 84.3 (79.4-94.8) fl MCH 26.9 (25.6-32.2) pg MCHC 31.9 L (32.2-35.5) g/dl RDW Std Deviation 43.6 (36.4-46.3) fL Plt Count 204 (182-369) K/mm3 MPV 9.0 L (9.4-12.3) fl Med Orders - Current: Current Medications Diphenhydramine HCl (Benadryl) 25 mg IVPUSH Q6H PRN PRN Reason: Itching or Nausea Docusate Sodium (Colace) 100 mg PO DAILY PRN PRN Reason: Constipation Last Admin: 06/14/19 02:33 Dose: 100 mg Emollient Ointment (Lansinoh Hpa) 0 gm TOP ASDIRECTED PRN PRN Reason: Sore Nipples Ephedrine Sulfate (Ephedrine Sulfate) 5 mg IVPUSH SEECOMMENT PRN PRN Reason: Other Ibuprofen (Motrin) 600 mg PO Q6H PRN PRN Reason: mild pain or fever Last Admin: 06/14/19 02:33 Dose: 600 mg Naloxone HCl (Narcan) 0.1 mg IVPUSH SEECOMMENT PRN PRN Reason: Respiratory Depression Oxycodone/Acetaminophen (Percocet 325-5 Mg) 2 tab PO Q6H PRN PRN Reason: Pain (moderate 4-6) Discontinued Medications Bupivacaine HCl (Marcaine 0.5%) Confirm Administered Dose 30 ml .ROUTE .STK-MED ONE Stop: 06/11/19 19:23 Last Admin: 06/11/19 19:56 Dose: 20 ml Bupivacaine HCl (Sensorcaine-Mpf 0.25%) 10 ml .ROUTE .STK-MED ONE Stop: 06/11/19 12:01 Cefazolin Sodium (Ancef) Confirm Administered Dose 2 gm .ROUTE .STK-MED ONE Stop: 06/11/19 19:19 Cefazolin Sodium (Ancef) Confirm Administered Dose 2 gm .ROUTE .STK-MED ONE Stop: 06/11/19 19:20 Citric Acid/Sodium Citrate (Bicitra Solution) Confirm Administered Dose 30 ml .ROUTE .STK-MED ONE Stop: 06/11/19 19:06 Last Admin: 06/11/19 19:13 Dose: Not Given Citric Acid/Sodium Citrate (Bicitra Solution) 30 ml PO ONETIME ONE Stop: 06/11/19 19:13 Last Admin: 06/11/19 19:21 Dose: 30 ml Citric Acid/Sodium Citrate (Bicitra Solution) 30 ml PO ONETIME ONE Stop: 06/11/19 19:14 Last Admin: 06/12/19 09:55 Dose: Not Given Diphenhydramine HCl (Benadryl) 25 mg IVPUSH Q6H PRN PRN Reason: Itching Ephedrine Sulfate (Ephedrine Sulfate) 5 mg IVPUSH ASDIRECTED PRN PRN Reason: Hypotension Fentanyl (Sublimaze) 100 mcg EPIDUR Q3H PRN PRN Reason: Pain Last Admin: 06/11/19 13:49 Dose: 100 mcg Fentanyl/Bupivacaine HCl (Fentanyl/Bupivacaine/Ns 2 Mcg-0.125% 250 Ml) 2 mcg EPIDUR CONTINUOUS PRN PRN Reason: Pain Last Admin: 06/11/19 04:54 Dose: 2 mcg Ampicillin Sodium 2 gm/ Sodium (Chloride) 100 mls @ 200 mls/hr IV ONETIME ONE Stop: 06/11/19 03:59 Last Admin: 06/11/19 03:25 Dose: 200 mls/hr Ampicillin Sodium 1 gm/ Sodium (Chloride) 100 mls @ 200 mls/hr IV Q4H [facility] Last Admin: 06/12/19 09:55 Dose: Not Given Lactated Ringer's (Ringers, Lactated) 1,000 mls @ 100 mls/hr IV ASDIRECTED [facility] Last Admin: 06/11/19 18:51 Dose: 250 mls/hr Oxytocin/Lactated Ringer's (Pitocin In Lr 10 Units/1,000 Ml) 10 unit in 1,000 mls @ 12 mls/hr IV TITRATE PAM; Protocol Last Titration: 06/11/19 16:30 Dose: 11 munits/min, 66 mls/hr Oxytocin/Lactated Ringer's (Pitocin In Lr 10 Units/1,000 Ml) 10 unit in 1,000 mls @ 500 mls/hr IV .CONTINUOUS PAM Lactated Ringer's (Ringers, Lactated) 1,000 mls @ 125 mls/hr IV ASDIRECTED PAM Dextrose/Lactated Ringer's (Dextrose 5%-Lactated Ringers) 1,000 mls @ 125 mls/ hr IV ASDIRECTED PAM Stop: 06/12/19 05:44 Last Admin: 06/12/19 02:17 Dose: 125 mls/hr Sodium Chloride (Normal Saline) 500 mls @ 125 mls/hr IV ASDIRECTED ONE Stop: 06/12/19 15:59 Last Admin: 06/12/19 15:15 Dose: 250 mls/hr Ketorolac Tromethamine (Toradol) Confirm Administered Dose 30 mg .ROUTE .STK- MED ONE Stop: 06/11/19 19:21 Ketorolac Tromethamine (Toradol) 30 mg IVPUSH Q6H [facility] Stop: 06/12/19 14:01 Last Admin: 06/12/19 16:05 Dose: 30 mg Lidocaine/Epinephrine (Xylocaine-Mpf 2%-Epi 1:200,000) Confirm Administered Dose 20 ml .ROUTE .STK-MED ONE Stop: 06/11/19 19:22 Methylergonovine Maleate (Methergine) Confirm Administered Dose 0.2 mg .ROUTE .STK-MED ONE Stop: 06/11/19 20:06 Last Admin: 06/11/19 20:10 Dose: 0.2 mg Metoclopramide HCl (Reglan) Confirm Administered Dose 10 mg .ROUTE .STK-MED ONE Stop: 06/11/19 19:06 Last Admin: 06/11/19 19:13 Dose: Not Given Metoclopramide HCl (Reglan) 10 mg IVPUSH ONETIME ONE Stop: 06/11/19 19:13 Last Admin: 06/11/19 19:21 Dose: 10 mg Metoclopramide HCl (Reglan) 10 mg IVPUSH ONETIME ONE Stop: 06/11/19 19:14 Last Admin: 06/12/19 09:55 Dose: Not Given Morphine Sulfate (Duramorph Pf) Confirm Administered Dose 10 mg .ROUTE .STK-MED ONE Stop: 06/11/19 19:19 Nalbuphine HCl (Nubain) 10 mg IVPUSH Q2H PRN PRN Reason: Pain Nalbuphine HCl (Nubain) 10 mg IVPUSH Q2H PRN PRN Reason: Pain Ondansetron HCl (Zofran) 4 mg IVPUSH ONETIME PRN PRN Reason: Nausea/Vomiting Last Admin: 06/11/19 13:18 Dose: 4 mg Oxytocin (Pitocin) Confirm Administered Dose 10 unit .ROUTE .STK-MED ONE Stop: 06/11/19 19:21 Phenylephrine HCl (Phenylephrine In Ns 100 Mcg/Ml) Confirm Administered Dose 1 mg .ROUTE .STK-MED ONE Stop: 06/11/19 20:17 Sodium Chloride (Saline Flush) 10 ml FLUSH ASDIRECTED PRN PRN Reason: Keep Vein Open Sodium Chloride (Saline Flush) 10 ml FLUSH ASDIRECTED PRN PRN Reason: Keep Vein Open - Interaction Infant Disposition, : [place] in Room with Family Infant Interaction: Holding Feeding: Attempted ; Nursed Fair/Poor Support Person: - Recovery Exam Fundal Tone: Firm Fundal Level: 2 Fingerbreadths Below Umbilicus Fundal Placement: Midline Lochia Amount: Scant, Small Lochia Color: Rubra/Red Perineum Description: Intact, Minimal Bruising/Swelling Episiotomy/Laceration: None Bladder Status: Voiding Urinary Elimination: Voided Other Urinary Elimination, : has not voided yet post catheter removal - Exam General: Alert, Oriented, Cooperative Lungs: Clear to Auscultation, Normal Respiratory Effort Cardiovascular: Regular Rate, Regular Rhythm GI/Abdominal Exam: Soft, Tender (appropriate post op ) Extremities: Normal Inspection Skin: Warm, Dry, Intact Wound/Incisions: Healing Well, No Drainage - Problem List & Annotations (1) Failure to progress in first stage of labor SNOMED Code(s): 465923580 Code(s): MOV2639 - Status: Acute Current Visit: Yes (2) S/P primary low transverse SNOMED Code(s): 657739454, 45000774, 853332165, 169986807, 240312591 Code(s): Z98.891 - HISTORY OF UTERINE SCAR FROM PREVIOUS SURGERY Status: Acute Current Visit: Yes (3) Acute blood loss anemia SNOMED Code(s): 976549273 Code(s): D62 - ACUTE POSTHEMORRHAGIC ANEMIA Status: Acute Current Visit: Yes - Problem List Review Problem List Initiated/Reviewed/Updated: Yes - Assessment Assessment:: POD#3 - Plan Plan:: * Patient Hb back today to 6.7. Overall feels well. Reviewed options of management and patient ultimately would like to proceed with additional 1 unit of blood. Once discharged will need to continue PNV and also take additional iron supplement * Discharge home later today
[2019-06-14] MEDS ORDERED: Sodium Chloride 0.9% 500 ML IV ONE (08:20)
--- NOTE | 2019-06-14 08:45 | PCM.DCSUM1 ---
Discharge Summary - Discharge Data Discharge Date: 06/14/19 Discharge Disposition: Home, Self-Care 01 Condition: Good - Referral to Home Health Primary Care Physician: Priya Choi MD - Discharge Diagnosis/Problem(s) (1) Failure to progress in first stage of labor SNOMED Code(s): 389375854 ICD Code: [id number] - Status: Acute Current Visit: Yes (2) S/P primary low transverse SNOMED Code(s): 774379628, [id number], [id number], 390512619, 332151260 ICD Code: Z98.891 - HISTORY OF UTERINE SCAR FROM PREVIOUS SURGERY Status: Acute Current Visit: Yes (3) Acute blood loss anemia SNOMED Code(s): 028668783 ICD Code: D62 - ACUTE POSTHEMORRHAGIC ANEMIA Status: Acute Current Visit : Yes - Patient Summary/Data Operative Procedure(s) Performed: primary section Complications: None Consults: None Recommended Follow-up Testing/Procedures: Follow up in 1 week for incision check / post op check Hospital Course: Patient is a 29 y/o who presented at 39 3/7 wks gestation in active labor. She progressed slowly to complete dilation after initially making very rapid change. She pushed for several hours without descent. Was taken to c- section for FTP in 2nd stage. See operative note for full details. POD#1 was noted to be anemic with a Hb of approximately 6 and so given 1 unit PRBC. Improved to low 7's on POD#2, but again at a value of ~6 on POD#3. Feeling well , however, and with stable VS. Reviewed risks/benefits of additional transfusion and opted to proceed with transfusion. Given 1 additional unit of blood and then discharged home. - Patient Instructions Diet: Regular Diet as Tolerated Activity: No Lifting Over 10 Pounds Activity, Other: Pelvic Rest for 6 weeks Driving: Do Not Drive (While taking narcotics ) Showering/Bathing: May Shower, No Tub Bathing/Swimming Wound/Incision Care: Keep Operative Site/Wound Site Clean and Dry, Change Dressing Daily, Do NOT Change Dressing Notify Provider of: Fever, Increased Pain, Swelling and Redness, Drainage, Nausea and/or Vomiting - Discharge Plan *PRESCRIPTION DRUG MONITORING PROGRAM REVIEWED*: Not Applicable *COPY OF PRESCRIPTION DRUG MONITORING REPORT IN PATIENT MARYANN: Not Applicable Prescriptions/Med Rec: Acetaminophen/oxyCODONE [Percocet 325-5 MG] 2 tab PO Q6H PRN #20 tablet PRN Reason: Pain (Moderate 4-6) Home Medications: Home Meds [id number]/Iron Fumarate/FA/DSS [ 19 Tablet] 1 each PO DAILY 06/11/19 [ History] Acetaminophen/oxyCODONE [Percocet 325-5 MG] 2 tab PO Q6H PRN #20 tablet [Rx] Docusate Sodium [Colace] 100 mg PO DAILY PRN cap 06/14/19 [Rx] Ibuprofen [Motrin] 600 mg PO Q6H PRN tablet 06/14/19 [Rx] Patient Handouts: Delivery, Care After, Tips for a Good Latch Referrals: Priya Choi MD [Primary Care Provider] - (1 weeks for post op check ) - Discharge Summary/Plan Comment DC Time >30 min.: No - Patient Data Vitals - Most Recent: Last Vital Signs Temp 36.5 C 06/14/19 02:35 Pulse 80 06/14/19 02:35 Resp 16 06/14/19 02:35 BP 110/68 06/14/19 02:35 Pulse Ox 98 06/14/19 02:35 Weight - Most Recent: 101.151 kg I&O - Last 24 hours: Intake & Output 06/13/19 06/14/19 06/14/19 22:59 06:59 14:59 Intake Total 320 Balance 320 Lab Results - Last 24 hrs: Laboratory Results - last 24 hr 06/14/19 Range/Units 05:25 WBC 13.46 H (3.98-10.04) K/mm3 RBC 2.49 L (3.98-5.22) M/mm3 Hgb 6.7 L* (11.2-15.7) gm/dl Hct 21.0 L (34.1-44.9) % MCV 84.3 (79.4-94.8) fl MCH 26.9 (25.6-32.2) pg MCHC 31.9 L (32.2-35.5) g/dl RDW Std Deviation 43.6 (36.4-46.3) fL Plt Count 204 (182-369) K/mm3 MPV 9.0 L (9.4-12.3) fl Med Orders - Current: Current Medications Diphenhydramine HCl (Benadryl) 25 mg IVPUSH Q6H PRN PRN Reason: Itching or Nausea Docusate Sodium (Colace) 100 mg PO DAILY PRN PRN Reason: Constipation Last Admin: 06/14/19 02:33 Dose: 100 mg Emollient Ointment (Lansinoh Hpa) 0 gm TOP ASDIRECTED PRN PRN Reason: Sore Nipples Ephedrine Sulfate (Ephedrine Sulfate) 5 mg IVPUSH SEECOMMENT PRN PRN Reason: Other Sodium Chloride (Normal Saline) 500 mls @ 100 mls/hr IV CONTINUOUS ONE Stop: 06/14/19 13:19 Ibuprofen (Motrin) 600 mg PO Q6H PRN PRN Reason: mild pain or fever Last Admin: 06/14/19 02:33 Dose: 600 mg Naloxone HCl (Narcan) 0.1 mg IVPUSH SEECOMMENT PRN PRN Reason: Respiratory Depression Oxycodone/Acetaminophen (Percocet 325-5 Mg) 2 tab PO Q6H PRN PRN Reason: Pain (moderate 4-6) Discontinued Medications Bupivacaine HCl (Marcaine 0.5%) Confirm Administered Dose 30 ml .ROUTE .STK-MED ONE Stop: 06/11/19 19:23 Last Admin: 06/11/19 19:56 Dose: 20 ml Bupivacaine HCl (Sensorcaine-Mpf 0.25%) 10 ml .ROUTE .STK-MED ONE Stop: 06/11/19 12:01 Cefazolin Sodium (Ancef) Confirm Administered Dose 2 gm .ROUTE .STK-MED ONE Stop: 06/11/19 19:19 Cefazolin Sodium (Ancef) Confirm Administered Dose 2 gm .ROUTE .STK-MED ONE Stop: 06/11/19 19:20 Citric Acid/Sodium Citrate (Bicitra Solution) Confirm Administered Dose 30 ml .ROUTE .STK-MED ONE Stop: 06/11/19 19:06 Last Admin: 06/11/19 19:13 Dose: Not Given Citric Acid/Sodium Citrate (Bicitra Solution) 30 ml PO ONETIME ONE Stop: 06/11/19 19:13 Last Admin: 06/11/19 19:21 Dose: 30 ml Citric Acid/Sodium Citrate (Bicitra Solution) 30 ml PO ONETIME ONE Stop: 06/11/19 19:14 Last Admin: 06/12/19 09:55 Dose: Not Given Diphenhydramine HCl (Benadryl) 25 mg IVPUSH Q6H PRN PRN Reason: Itching Ephedrine Sulfate (Ephedrine Sulfate) 5 mg IVPUSH ASDIRECTED PRN PRN Reason: Hypotension Fentanyl (Sublimaze) 100 mcg EPIDUR Q3H PRN PRN Reason: Pain Last Admin: 06/11/19 13:49 Dose: 100 mcg Fentanyl/Bupivacaine HCl (Fentanyl/Bupivacaine/Ns 2 Mcg-0.125% 250 Ml) 2 mcg EPIDUR CONTINUOUS PRN PRN Reason: Pain Last Admin: 06/11/19 04:54 Dose: 2 mcg Ampicillin Sodium 2 gm/ Sodium (Chloride) 100 mls @ 200 mls/hr IV ONETIME ONE Stop: 06/11/19 03:59 Last Admin: 06/11/19 03:25 Dose: 200 mls/hr Ampicillin Sodium 1 gm/ Sodium (Chloride) 100 mls @ 200 mls/hr IV Q4H PAM Last Admin: 06/12/19 09:55 Dose: Not Given Lactated Ringer's (Ringers, Lactated) 1,000 mls @ 100 mls/hr IV ASDIRECTED PAM Last Admin: 06/11/19 18:51 Dose: 250 mls/hr Oxytocin/Lactated Ringer's (Pitocin In Lr 10 Units/1,000 Ml) 10 unit in 1,000 mls @ 12 mls/hr IV TITRATE PAM; Protocol Last Titration: 06/11/19 16:30 Dose: 11 munits/min, 66 mls/hr Oxytocin/Lactated Ringer's (Pitocin In Lr 10 Units/1,000 Ml) 10 unit in 1,000 mls @ 500 mls/hr IV .CONTINUOUS PAM Lactated Ringer's (Ringers, Lactated) 1,000 mls @ 125 mls/hr IV ASDIRECTED PAM Dextrose/Lactated Ringer's (Dextrose 5%-Lactated Ringers) 1,000 mls @ 125 mls/ hr IV ASDIRECTED PAM Stop: 06/12/19 05:44 Last Admin: 06/12/19 02:17 Dose: 125 mls/hr Sodium Chloride (Normal Saline) 500 mls @ 125 mls/hr IV ASDIRECTED ONE Stop: 06/12/19 15:59 Last Admin: 06/12/19 15:15 Dose: 250 mls/hr Ketorolac Tromethamine (Toradol) Confirm Administered Dose 30 mg .ROUTE .STK- MED ONE Stop: 06/11/19 19:21 Ketorolac Tromethamine (Toradol) 30 mg IVPUSH Q6H PAM Stop: 06/12/19 14:01 Last Admin: 06/12/19 16:05 Dose: 30 mg Lidocaine/Epinephrine (Xylocaine-Mpf 2%-Epi 1:200,000) Confirm Administered Dose 20 ml .ROUTE .STK-MED ONE Stop: 06/11/19 19:22 Methylergonovine Maleate (Methergine) Confirm Administered Dose 0.2 mg .ROUTE .STK-MED ONE Stop: 06/11/19 20:06 Last Admin: 06/11/19 20:10 Dose: 0.2 mg Metoclopramide HCl (Reglan) Confirm Administered Dose 10 mg .ROUTE .STK-MED ONE Stop: 06/11/19 19:06 Last Admin: 06/11/19 19:13 Dose: Not Given Metoclopramide HCl (Reglan) 10 mg IVPUSH ONETIME ONE Stop: 06/11/19 19:13 Last Admin: 06/11/19 19:21 Dose: 10 mg Metoclopramide HCl (Reglan) 10 mg IVPUSH ONETIME ONE Stop: 06/11/19 19:14 Last Admin: 06/12/19 09:55 Dose: Not Given Morphine Sulfate (Duramorph Pf) Confirm Administered Dose 10 mg .ROUTE .STK-MED ONE Stop: 06/11/19 19:19 Nalbuphine HCl (Nubain) 10 mg IVPUSH Q2H PRN PRN Reason: Pain Nalbuphine HCl (Nubain) 10 mg IVPUSH Q2H PRN PRN Reason: Pain Ondansetron HCl (Zofran) 4 mg IVPUSH ONETIME PRN PRN Reason: Nausea/Vomiting Last Admin: 06/11/19 13:18 Dose: 4 mg Oxytocin (Pitocin) Confirm Administered Dose 10 unit .ROUTE .STK-MED ONE Stop: 06/11/19 19:21 Phenylephrine HCl (Phenylephrine In Ns 100 Mcg/Ml) Confirm Administered Dose 1 mg .ROUTE .[employer] ONE Stop: 06/11/19 20:17 Sodium Chloride (Saline Flush) 10 ml FLUSH ASDIRECTED PRN PRN Reason: Keep Vein Open Sodium Chloride (Saline Flush) 10 ml FLUSH ASDIRECTED PRN PRN Reason: Keep Vein Open
[2019-06-14] MEDS ORDERED: Polyethylene Glycol 3350 Powder 17 GM Packet PO ONE (11:16)
[2019-06-14] MEDS ORDERED: Measles, Mumps & Rubella Vaccine 0.5 ML SDV SUBCUT ONE (12:35)
== END 2019-06-14 13:00 | disposition home or self-care (01) | DRG 540 ==
LOC: JD.OBCHECK 02:25 → JD.OB 02:30 → JD.OBCHECK 02:53 → JD.OB 04:01 → OBSVTOIN 19:59 → JD.OB 20:00
PROVIDERS: ADMIT Obstetrics & Gynecology; ATTEND Obstetrics & Gynecology
PROC: 10D00Z1 Extraction of Products of Conception, Low, Open Approach (ICD-10-PCS; principal; 2019-06-11)
PROC: 30233N1 Transfusion of Nonautologous Red Blood Cells into Peripheral Vein, Percutaneous Approach (ICD-10-PCS; 2019-06-12)
DX: O62.2 Other uterine inertia (principal); O90.81 Anemia of the puerperium; D62 Acute posthemorrhagic anemia; Z79.899 Other long term (current) drug therapy; Z3A.39 39 weeks gestation of pregnancy; Z37.0 Single live birth
CPT/HCPCS: 01967; 01968; 36415; 36430; 51701; 51702; 59025; 81001; 85025; 85027; 86592; 86850; 86900; 86901; 86922; 90471; 90707; A9270-GY; J0290; J0690; J1885; J2210; J2270; J2370; J2405; J2590; J2765; J3010; J3490; J7030; J7040; J7042; J7120; P9016

== ENCOUNTER 2020-02-11 12:27 | Emergency (ER) | payer BC ==
--- NOTE | 2020-02-11 13:00 | EDM.PDOC ---
ED HPI GENERAL MEDICAL PROBLEM - General Chief Complaint: Skin Complaint Stated Complaint: SKIN COMPLAINT-ALLERGIC REACTION Time Seen by Provider: 02/11/20 12:37 Source of Information: Reports: Patient, RN Notes Reviewed History Limitations: Reports: No Limitations - History of Present Illness INITIAL COMMENTS - FREE TEXT/NARRATIVE: Patient is a 29-year-old female who presents to the ED for evaluation of a possible allergic reaction. Patient notes that earlier this morning, she was using a new scrubbing bubbles equipment or machinery cleaner to clean her bathroom. She states this was a spray version, and thinks that some of the aerosol could have gotten onto her skin causing these issues. She did not have any issues right away, but shortly after leaving the house and exposing her skin to the sun she developed a rash on her upper outer arms, and on her neck. Patient states that the rash itself is not itchy, its not raised, it is reddened and she states it does slightly burn and does notice some warmth. Patient denies any sort of respiratory issues, no cough, no shortness of breath, no fever/chills, she has been feeling well otherwise and denies any other sick-like symptoms. Primary care provider is Cornelius Flores. 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 ED EXAM, SKIN/RASH Exam: See Below Exam Limited By: No Limitations General Appearance: Alert, WD/WN, No Apparent Distress Eye Exam: Bilateral Eye: EOMI, Normal Inspection, PERRL Ears: Normal External Exam Nose: Normal Inspection Throat/Mouth: Normal Inspection, Normal Lips, Normal Teeth, Normal Gums, Normal Oropharynx, Normal Voice, No Airway Compromise Head: Atraumatic, Normocephalic Neck: Normal Inspection (except for rash, see skin assessment for further detail ), Supple, Non-Tender, Full Range of Motion Respiratory/Chest: No Respiratory Distress, Lungs Clear, Normal Breath Sounds, No Accessory Muscle Use, Chest Non-Tender Cardiovascular: Normal Peripheral Pulses, Regular Rate, Rhythm, No Murmur Peripheral Pulses: 3+: Radial (L), Radial (R) Extremities: Normal Inspection (except for rash, see skin assessment for further detail), Normal Range of Motion, Non-Tender, Normal Capillary Refill Neurological: Alert, Oriented, Normal Cognition, No Motor/Sensory Deficits Psychiatric: Normal Affect, Normal Mood Skin: Warm, Dry, Intact, Normal Color, Rash (erythematous areas that are not raised, not itchy noted to: lateral R arm/forearm, in a necklace distribution around neck, and on lateral L arm/forearm.) Location, Skin: Neck, Upper Extremity, Right, Upper Extremity, Left Characteristics: Macular, Erythematous Associated features: Warmth. No: Tenderness, Crusting Front/Back Body Diagram: 1 - Right arm area of concern 2 - neck area of concern 3 - left arm area of concern Course - Vital Signs Last Recorded V/S: Last Vital Signs Temp 98.1 F 02/11/20 12:38 Pulse 97 02/11/20 12:38 Resp 16 02/11/20 12:38 BP 147/89 H 02/11/20 12:38 Pulse Ox 97 02/11/20 12:38 - Re-Assessments/Exams Free Text/Narrative Re-Assessment/Exam: 02/11/20 13:07 Patient presents to the ED for evaluation of her allergic reaction/rash. This does appear to be some sort of contact or irritant dermatitis. Patient will be provided with a prescription for triamcinolone cream to apply topically, I did go over use instructions with her, and she verbalized understanding. Departure - Departure Time of Disposition: 12:56 Disposition: Home, Self-Care 01 Condition: Good Clinical Impression: Contact dermatitis and eczema due to detergents - Discharge Information *PRESCRIPTION DRUG MONITORING PROGRAM REVIEWED*: No *COPY OF PRESCRIPTION DRUG MONITORING REPORT IN PATIENT MARYANN: No Prescriptions: Triamcinolone Acetonide [Triamcinolone Acetonide 0.5%] 1 applic TOP BID #1 tube Instructions: Contact Dermatitis, [id number] Referrals: Cornelius Rivera MD [Primary Care Provider] - Forms: ED Department Discharge Additional Instructions: You were evaluated in the ED for your rash. This does appear to be a contact or irritant dermatitis in nature, related to the scrubbing bubbles that you used earlier today. Recommend you cease use of this particular cleaning agent. You have been provided with a prescription for a steroid cream, electronically sent to the clinic pharmacy in the [facility]. Please apply a thin layer to the areas of concern 2 times a day for the next 2 weeks to help clear this rash. If you notice that the cream does not seem to be helping within 2 to 3 days time, recommend you seek care for reevaluation. There are multiple other modalities that can be used for skin irritants. Please return to the ER at any time if symptoms change or worsen. Sepsis Event Note - Evaluation Sepsis Screening Result: No Definite Risk - Focused Exam Vital Signs: Vital Signs Temp Pulse Resp BP Pulse Ox 02/11/20 12:38 98.1 F 97 16 147/89 H 97 Date Exam was Performed: 02/11/20 Time Exam was Performed: 13:00
== END 2020-02-11 13:22 | disposition home or self-care (01) ==
LOC: JD.ED 12:27
DX: L25.3 Unspecified contact dermatitis due to other chemical products (principal); Z79.899 Other long term (current) drug therapy
CPT/HCPCS: 99282

== ENCOUNTER 2020-11-10 10:30 | Inpatient (IN) | payer SELFPAY ==
[2020-11-10] MEDS ORDERED: ceFAZolin 1 GM Vial ONE (10:38)
[2020-11-10] MEDS ORDERED: Bupivacaine 0.5% 30 ML SDV ONE (10:38)
[2020-11-10] MEDS ORDERED: Phenylephrine 1% 10 MG/ML SDV ONE (10:38)
[2020-11-10] MEDS ORDERED: Morphine PF 10 MG/10 ML SDV ONE (10:38)
[2020-11-10] MEDS ORDERED: Sodium Chloride 0.9% 10 ML Syringe FLUSH PRN (10:39)
[2020-11-10] MEDS ORDERED: Ketorolac 30 MG/ML SDV ONE (10:39)
[2020-11-10] MEDS ORDERED: Metoclopramide 10 MG/2 ML SDV IVPUSH ONE (10:39)
[2020-11-10] MEDS ORDERED: Citric Acid/Sodium Citrate Solution 30 ML Cup PO ONE (10:39)
[2020-11-10] MEDS ORDERED: ceFAZolin 2 GM in Premix Bag 1 BAG IV ONE (10:39)
[2020-11-10] MEDS ORDERED: Ondansetron 4 MG/2 ML SDV IVPUSH PRN (10:39)
[2020-11-10] MEDS ORDERED: Oxytocin 10 Units/1 ML SDV ONE (10:39)
[2020-11-10] MEDS ORDERED: Lactated Ringers 1,000 ML ONE ×2 (10:43→12:15)
[2020-11-10] MEDS ORDERED: Oxytocin/Lactated Ringers 10 UNIT/1,000 ML BAG IV SCH (10:45)
[2020-11-10] MEDS ORDERED: Lactated Ringers 1,000 ML IV SCH ×2 (10:45→21:15)
--- NOTE | 2020-11-10 12:25 | PCM.POSTAN ---
POST ANESTHESIA ASSESSMENT - MENTAL STATUS Mental Status: Alert, Oriented - VITAL SIGNS Vital Signs: Last Vital Signs Temp 36.6 C 11/10/20 11:02 Pulse 104 H 11/10/20 10:54 Resp 16 11/10/20 11:02 BP 126/75 11/10/20 10:54 Pulse Ox 97 11/10/20 10:54 - RESPIRATORY Respiratory Status: Respiratory Rate WNL, Airway Patent, O2 Saturation Stable, Supplemental Oxygen - CARDIOVASCULAR CV Status: Pulse Rate WNL, Blood Pressure Stable - GASTROINTESTINAL GI Status: No Symptoms - PAIN Pain Score: 0 - POST OP HYDRATION Hydration Status: Adequate & Stable - OBSERVATIONS Free Text/Narrative:: no anesthesia complications noted
--- NOTE | 2020-11-10 12:27 | PCM.PREANE ---
Preanesthetic Assessment - Procedure Proposed Procedure: Repeat - Anesthesia/Transfusion/Family Hx Anesthesia History: Prior Anesthesia Without Reaction Family History of Anesthesia Reaction: No Transfusion History: No Prior Transfusion(s) Intubation History: Unknown - Review of Systems General: No Symptoms Pulmonary: No Symptoms Cardiovascular: No Symptoms Gastrointestinal: No Symptoms Neurological: No Symptoms Other: Reports: Anxiety - Physical Assessment NPO Status Date: 11/09/20 NPO Status Time: 00:00 Vital Signs: Last Vital Signs Temp 36.6 C 11/10/20 11:02 Pulse 104 H 11/10/20 10:54 Resp 16 11/10/20 11:02 BP 126/75 11/10/20 10:54 Pulse Ox 97 11/10/20 10:54 Weight: 102.058 kg ASA Class: 2 Mental Status: Alert & Oriented x3 Airway Class: Mallampati = 1 Dentition: Reports: Normal Dentition Thyro-Mental Finger Breadths: 3 Mouth Opening Finger Breadths: 3 ROM/Head Extension: Full Lungs: Clear to Auscultation, Normal Respiratory Effort Cardiovascular: Regular Rate, Regular Rhythm - Lab Values: Laboratory Last Values WBC 11.66 K/mm3 (3.98-10.04) H 11/10/20 11:00 RBC 3.97 M/mm3 (3.98-5.22) L 11/10/20 11:00 Hgb 11.8 gm/dl (11.2-15.7) D 11/10/20 11:00 Hct 35.5 % (34.1-44.9) 11/10/20 11:00 MCV 89.4 fl (79.4-94.8) D 11/10/20 11:00 MCH 29.7 pg (25.6-32.2) 11/10/20 11:00 MCHC 33.2 g/dl (32.2-35.5) 11/10/20 11:00 RDW Std Deviation 48.9 fL (36.4-46.3) H 11/10/20 11:00 Plt Count 213 K/mm3 (182-369) 11/10/20 11:00 MPV 9.0 fl (9.4-12.3) L 11/10/20 11:00 Neut % (Auto) 66.8 % (34.0-71.1) 11/10/20 11:00 Lymph % (Auto) 26.8 % (19.3-51.7) 11/10/20 11:00 [place] % (Auto) 5.7 % (4.7-12.5) 11/10/20 11:00 Eos % (Auto) 0.3 (0.7-5.8) L 11/10/20 11:00 Baso % (Auto) 0.1 % (0.1-1.2) 11/10/20 11:00 Neut # (Auto) 7.79 K/mm3 (1.56-6.13) H 11/10/20 11:00 Lymph # (Auto) 3.12 K/mm3 (1.18-3.74) 11/10/20 11:00 [place] # (Auto) 0.67 K/mm3 (0.24-0.36) H 11/10/20 11:00 Eos # (Auto) 0.03 K/mm3 (0.04-0.36) L 11/10/20 11:00 Baso # (Auto) 0.01 K/mm3 (0.01-0.08) 11/10/20 11:00 SARS-CoV-2 RNA (ISAAC) Negative (NEGATIVE) 11/10/20 10:55 SARS CoV-2 RNA Rapid ISAAC Negative (NEGATIVE) 11/10/20 10:55 Blood Type O POSITIVE 11/10/20 11:00 Gel Antibody Screen Negative 11/10/20 11:00 - Allergies Allergies/Adverse Reactions: Allergies Allergy/AdvReac Type Severity Reaction Status Date / Time No Known Allergies Allergy Verified 06/11/19 02:57 - Anesthesia Plan Pre-Op Medication Ordered: None - Acknowledgements Anesthesia Type Planned: Spinal Pt an Appropriate Candidate for the Planned Anesthesia: Yes Alternatives and Risks of Anesthesia Discussed w Pt/Guardian: Yes Pt/Guardian Understands and Agrees with Anesthesia Plan: Yes PreAnesthesia Questionnaire - Past Health History Medical/Surgical History: Denies Medical/Surgical History Gastrointestinal History: Reports: GERD 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: - Infectious Disease History Infectious Disease History: Reports: Chicken Pox - Past Surgical History HEENT Surgical History: Reports: Oral Surgery - HOME MEDS Home Medications: Home Meds FLUoxetine [PROzac] 10 mg PO DAILY 02/11/20 [History] Triamcinolone Acetonide [Triamcinolone Acetonide 0.5%] 1 applic TOP BID #1 tube 02/11/20 [Rx] - CURRENT (IN HOUSE) MEDS Current Meds: Current Medications Oxytocin/Lactated Ringer's (Pitocin In Lr 10 Units/1,000 Ml) 10 unit in 1,000 mls @ 100 mls/hr IV ASDIRECTED PAM; Protocol Lactated Ringer's (Ringers, Lactated) 1,000 mls @ 125 mls/hr IV ASDIRECTED PAM Ondansetron HCl (Zofran) 4 mg IVPUSH Q4H PRN PRN Reason: Nausea/Vomiting Sodium Chloride (Saline Flush) 10 ml FLUSH ASDIRECTED PRN PRN Reason: Keep Vein Open Discontinued Medications Bupivacaine HCl (Marcaine 0.5%) Confirm Administered Dose 30 ml .ROUTE .STK-MED ONE Stop: 11/10/20 10:39 Cefazolin Sodium (Ancef) Confirm Administered Dose 2 gm .ROUTE .STK-MED ONE Stop: 11/10/20 10:39 Citric Acid/Sodium Citrate (Bicitra Solution) 30 ml PO ONETIME ONE Stop: 11/10/20 10:40 Last Admin: 11/10/20 11:03 Dose: 30 ml Documented by: Cefazolin Sodium/Dextrose 2 gm (/ Premix) 50 mls @ 100 mls/hr IV ONETIME ONE Stop: 11/10/20 11:08 Lactated Ringer's (Ringers, Lactated) Confirm Administered Dose 1,000 mls @ as directed .ROUTE .STK-MED ONE Stop: 11/10/20 10:44 Lactated Ringer's (Ringers, Lactated) Confirm Administered Dose 1,000 mls @ as directed .ROUTE .STK-MED ONE Stop: 11/10/20 12:16 Ketorolac Tromethamine (Toradol) Confirm Administered Dose 30 mg .ROUTE .STK-MED ONE Stop: 11/10/20 10:40 Metoclopramide HCl (Reglan) 10 mg IVPUSH ONETIME ONE Stop: 11/10/20 10:40 Last Admin: 11/10/20 11:04 Dose: 10 mg Documented by: Morphine Sulfate (Duramorph Pf) Confirm Administered Dose 10 mg .ROUTE .STK-MED ONE Stop: 11/10/20 10:39 Oxytocin (Pitocin) Confirm Administered Dose 10 unit .ROUTE .STK-MED ONE Stop: 11/10/20 10:40 Phenylephrine HCl (Abel-Synephrine) Confirm Administered Dose 10 mg .ROUTE .STK-M ED ONE Stop: 11/10/20 10:39
--- NOTE | 2020-11-10 12:34 | PCM.OPNOTE ---
- General Post-Op/Procedure Note Date of Surgery/Procedure: 11/10/20 Operative Procedure(s): repeat section Findings: viable female, weight 7#2oz, APGARS at 1154. Pre Op Diagnosis: prior , contractions, advanced dilation (5cm) Post-Op Diagnosis: Same Anesthesia Technique: Spinal Primary Surgeon: Priya Choi Animal Pathology Teacher: Susan Villa Role of Animal Pathology Teacher: patient safety, retraction Fluid Replacement, Intraop: 2,000 Output, Urine Amount: 50 EBL in mLs: 640 Drain/Tube Comments:: mon Complications: None Condition: Good Free Text/Narrative:: The patient was taken to the operating room where spinal anesthesia was dosed to surgical levels without difficulty. The patient was prepped and draped in the usual sterile fashion in the dorsal supine position with a leftward tilt. A Pfannenstiel skin incision was made with the scalpel and carried through to the underlying layer of fascia. The fascia was incised in the midline and extended laterally using Finn scissors. Candi clamps were used to elevate the superior aspect of the fascial incision, which was elevated, and the underlying rectus muscles were dissected off bluntly and using Finn scissors. Attention was then turned to the inferior aspect of the fascial incision, which in similar fashion was grasped with Candi clamps, elevated, and the underlying rectus muscles were dissected off bluntly and using the finn. The rectus muscles were dissected in the midline. The peritoneum was entered bluntly; this incision was extended superiorly and inferiorly with good visualization of the bladder. The bladder blade was inserted. Dense adhesion to upper uterus. Taken down with bovie The vesicouterine peritoneum was identified and entered sharply using Metzenbaum scissors. This incision was extended laterally and the bladder flap was created digitally. The bladder blade was reinserted. The lower uterine segment was incised in a transverse fashion using the scalpel and with digital traction. Clear fluid was noted. The was subsequently delivered by flexing the head to the incision. Body and shoulders followed without difficulty. The cord was clamped and cut. The infant was subsequently handed to the awaiting amphibious operations officer whose presence had been requested.. The placenta was delivered spontaneously intact with a three-vessel cord noted. The uterus was exteriorized and cleared of all clots and debris. The uterine incision was repaired in 1 layers using 0 monocryl. Running lock suture used to repair upper area where adhesion had been taken down. Hemostasis was visualized. Hemostasis was visualized bilaterally. The uterus was returned to the abdomen. The uterine incision was reexamined and it was noted to be hemostatic. The pelvis was copiously irrigated. The fascia was closed with 1 PDS suture, and the skin was closed with 3-0 monocryl. Sponge, lap, and instrument counts were correct x2. The patient was stable at the completion of the procedure and was subsequently transferred to the recovery room in stable condition.
[2020-11-10] MEDS ORDERED: ePHEDrine 50 MG/ML SDV IVPUSH PRN (13:38)
[2020-11-10] MEDS ORDERED: Naloxone 0.4 MG/ML SDV IVPUSH PRN (13:38)
[2020-11-10] MEDS ORDERED: Acetaminophen/oxyCODONE 325-5 MG Tab PO PRN (13:38)
[2020-11-10] MEDS ORDERED: Dextrose 5%-Lactated Ringers 1,000 ML IV SCH (13:38)
[2020-11-10] MEDS ORDERED: diphenhydrAMINE 50 MG/ML SDV IVPUSH PRN (13:38)
[2020-11-10] MEDS: Ketorolac 30 MG/ML SDV IVPUSH SCH ×2 (17:11→23:24)
[2020-11-10] MEDS ORDERED: Ondansetron 4 MG/2 ML SDV IVPUSH ONE (17:46)
[2020-11-11] MEDS: Ketorolac 30 MG/ML SDV IVPUSH SCH (05:04)
--- NOTE | 2020-11-11 07:43 | PCM48HPAN ---
Post Anesthesia Note - EVALUATION WITHIN 48HRS OF ANESTHETIC Vital Signs in Normal Range: Yes Patient Participated in Evaluation: Yes Respiratory Function Stable: Yes Airway Patent: Yes Cardiovascular Function Stable: Yes Hydration Status Stable: Yes Pain Control Satisfactory: Yes Nausea and Vomiting Control Satisfactory: Yes Mental Status Recovered: Yes (no complaints) Vital Signs: Last Vital Signs Temp 97.3 F 11/11/20 05:00 Pulse 74 11/11/20 05:09 Resp 16 11/11/20 07:00 BP 112/59 L 11/11/20 05:09 Pulse Ox 98 11/11/20 07:00
--- NOTE | 2020-11-11 09:14 | PCM.SN.2 ---
- Free Text/Narrative Note: Postoperative day #1. Patient is doing well in the postoperative period. Minimal lochia, voiding well, ambulated without problems. Nursing without concerns. Patient is afebrile, vital signs are stable. Follow-up CBC is reasonable. Abdomen is flat, soft, uterus is below the umbilicus and is firm and nontender. Positive bowel sounds are noted. Incision appears to be dry. Legs are nontender. Assessment: 1. /postoperative day #1recovery going well. Plan: 1. Routine / care. Patient be discharged home within the next 24-48 hours. 2. Regular diet. Increase activity. May shower today. DC IV.
[2020-11-11] MEDS: Acetaminophen/oxyCODONE 325-5 MG Tab PO PRN ×3 (11:12→21:59)
[2020-11-11] MEDS: Ibuprofen 600 MG Tab PO PRN (20:20)
[2020-11-12] MEDS: Ibuprofen 600 MG Tab PO PRN ×2 (03:45→10:28)
--- NOTE | 2020-11-12 17:13 | PCM.DCSUM1 ---
Discharge Summary - Hospital Course Brief History: Admitted in early labor. Diagnosis: Stroke: No - Discharge Data Discharge Date: 11/12/20 Discharge Disposition: Home, Self-Care 01 Condition: Good - Referral to Home Health Primary Care Physician: Cornelius Rivera MD - Patient Summary/Data Operative Procedure(s) Performed: repeat section - Patient Instructions Diet: Usual Diet as Tolerated Activity: No Strenuous Activities Driving: May Drive Today Showering/Bathing: May Shower Wound/Incision Care: Keep Operative Site/Wound Site Clean and Dry, Change Dressing Daily, Do NOT Change Dressing Notify Provider of: Fever - Discharge Plan *PRESCRIPTION DRUG MONITORING PROGRAM REVIEWED*: No *COPY OF PRESCRIPTION DRUG MONITORING REPORT IN PATIENT MARYANN: No Home Medications: Home Meds FLUoxetine [PROzac] 10 mg PO DAILY 02/11/20 [History] Triamcinolone Acetonide [Triamcinolone Acetonide 0.5%] 1 applic TOP BID #1 tube 02/11/20 [Rx] Patient Handouts: Delivery, Care After Referrals: Priya Choi MD [Physician] - (2 weeks) - Discharge Summary/Plan Comment DC Time >30 min.: No - General Info Date of Service: 11/12/20 Functional Status: Reports: Pain Controlled - Review of Systems General: Reports: No Symptoms HEENT: Reports: No Symptoms Pulmonary: Reports: No Symptoms Cardiovascular: Reports: No Symptoms Gastrointestinal: Reports: No Symptoms Genitourinary: Reports: No Symptoms Musculoskeletal: Reports: No Symptoms Skin: Reports: No Symptoms Neurological: Reports: No Symptoms Psychiatric: Reports: No Symptoms - Patient Data Vitals - Most Recent: Last Vital Signs Temp 36.3 C 11/12/20 14:00 Pulse 75 11/12/20 14:00 Resp 16 11/12/20 14:00 BP 131/92 H 11/12/20 14:00 Pulse Ox 94 L 11/12/20 14:00 Weight - Most Recent: 102.058 kg I&O - Last 24 hours: Intake & Output 11/12/20 11/12/20 11/12/20 06:59 14:59 22:59 Intake Total 120 Balance 120 Med Orders - Current: Current Medications Diphenhydramine HCl (Benadryl) 25 mg IVPUSH Q6H PRN PRN Reason: Itching or Nausea Ephedrine Sulfate (Ephedrine Sulfate) 5 mg IVPUSH SEECOMMENT PRN PRN Reason: Other Lactated Ringer's (Ringers, Lactated) 1,000 mls @ 150 mls/hr IV ASDIRECTED PAM Last Admin: 11/10/20 21:22 Dose: 150 mls/hr Documented by: Ibuprofen (Motrin) 600 mg PO Q6H PRN PRN Reason: mild pain or fever Last Admin: 11/12/20 10:28 Dose: 600 mg Documented by: Naloxone HCl (Narcan) 0.1 mg IVPUSH SEECOMMENT PRN PRN Reason: Respiratory Depression Oxycodone/Acetaminophen (Percocet 325-5 Mg) 1 tab PO Q4H PRN PRN Reason: Pain (moderate 4-6) Last Admin: 11/11/20 21:59 Dose: 1 tab Documented by: Oxycodone/Acetaminophen (Percocet 325-5 Mg) 2 tab PO Q4H PRN PRN Reason: Pain (severe 7-10) Discontinued Medications Bupivacaine HCl (Marcaine 0.5%) Confirm Administered Dose 30 ml .ROUTE .STK-MED ONE Stop: 11/10/20 10:39 Last Admin: 11/10/20 11:50 Dose: 18 ml Documented by: Cefazolin Sodium (Ancef) Confirm Administered Dose 2 gm .ROUTE .STK-MED ONE Stop: 11/10/20 10:39 Citric Acid/Sodium Citrate (Bicitra Solution) 30 ml PO ONETIME ONE Stop: 11/10/20 10:40 Last Admin: 11/10/20 11:03 Dose: 30 ml Documented by: Cefazolin Sodium/Dextrose 2 gm (/ Premix) 50 mls @ 100 mls/hr IV ONETIME ONE Stop: 11/10/20 11:08 Oxytocin/Lactated Ringer's (Pitocin In Lr 10 Units/1,000 Ml) 10 unit in 1,000 mls @ 100 mls/hr IV ASDIRECTED PAM; Protocol Lactated Ringer's (Ringers, Lactated) 1,000 mls @ 125 mls/hr IV ASDIRECTED [facility] Lactated Ringer's (Ringers, Lactated) Confirm Administered Dose 1,000 mls @ as directed .ROUTE .STK-MED ONE Stop: 11/10/20 10:44 Lactated Ringer's (Ringers, Lactated) Confirm Administered Dose 1,000 mls @ as directed .ROUTE .STK-MED ONE Stop: 11/10/20 12:16 Dextrose/Lactated Ringer's (Dextrose 5%-Lactated Ringers) 1,000 mls @ 125 mls/hr IV ASDIRECTED PAM Stop: 11/10/20 21:37 Last Admin: 11/10/20 13:49 Dose: 125 mls/hr Documented by: Ketorolac Tromethamine (Toradol) Confirm Administered Dose 30 mg .ROUTE .STK-MED ONE Stop: 11/10/20 10:40 Ketorolac Tromethamine (Toradol) 30 mg IVPUSH Q6H [facility] Stop: 11/11/20 04:31 Last Admin: 11/11/20 05:04 Dose: 30 mg Documented by: Metoclopramide HCl (Reglan) 10 mg IVPUSH ONETIME ONE Stop: 11/10/20 10:40 Last Admin: 11/10/20 11:04 Dose: 10 mg Documented by: Morphine Sulfate (Duramorph Pf) Confirm Administered Dose 10 mg .ROUTE .STK-MED ONE Stop: 11/10/20 10:39 Ondansetron HCl (Zofran) 4 mg IVPUSH Q4H PRN PRN Reason: Nausea/Vomiting Ondansetron HCl (Zofran) 4 mg IVPUSH ONETIME ONE Stop: 11/10/20 17:47 Last Admin: 11/10/20 17:56 Dose: 4 mg Documented by: Oxytocin (Pitocin) Confirm Administered Dose 10 unit .ROUTE .STK-MED ONE Stop: 11/10/20 10:40 Phenylephrine HCl (Abel-Synephrine) Confirm Administered Dose 10 mg .ROUTE .STK- MED ONE Stop: 11/10/20 10:39 Sodium Chloride (Saline Flush) 10 ml FLUSH ASDIRECTED PRN PRN Reason: Keep Vein Open - Exam General: Reports: Alert, Oriented HEENT: Reports: Pupils Equal, Pupils Reactive, EOMI, Mucous Membr. Moist/[place]: Reports: Supple Lungs: Reports: Clear to Auscultation, Normal Respiratory Effort Cardiovascular: Reports: Regular Rate, Regular Rhythm GI/Abdominal Exam: Normal Bowel Sounds, Soft, Non-Tender, No Organomegaly, No Distention, No Abnormal Bruit, No Mass, Pelvis Stable (Female) Exam: Normal External Exam, Normal Speculum Exam, Normal Bimanual Exam Rectal (Female) Exam: Normal Exam, Normal Rectal Tone Back Exam: Reports: Normal Inspection, Full Range of Motion Extremities: Normal Inspection, Normal Range of Motion, Non-Tender, No Pedal Edema, Normal Capillary Refill Skin: Reports: Warm, Dry, Intact Wound/Incisions: Reports: Healing Well Neurological: Reports: No New Focal Deficit Psy/Mental Status: Reports: Alert, Normal Affect, Normal Mood
== END 2020-11-12 16:43 | disposition home or self-care (01) | DRG 540 ==
LOC: JD.OBCHECK 10:30 → JD.OB 10:37 → JD.OBCHECK 10:39
PROVIDERS: ADMIT Obstetrics & Gynecology; ATTEND Obstetrics & Gynecology
PROC: 10D00Z1 Extraction of Products of Conception, Low, Open Approach (ICD-10-PCS; principal; 2020-11-10)
DX: O34.211 Maternal care for low transverse scar from previous cesarean delivery (principal); Z37.0 Single live birth; Z20.822 Contact with and (suspected) exposure to COVID-19; Z3A.37 37 weeks gestation of pregnancy
CPT/HCPCS: 01961; 36415; 59025; 85025; 86592; 86850; 86900; 86901; 87653; A9270-GY; J0690; J1885; J2270; J2370; J2405; J2590; J2765; J3490; J7120; J7121; U0002

== ENCOUNTER 2021-03-05 01:59 | Emergency (ER) | payer BC ==
--- NOTE | 2021-03-05 02:39 | EDM.PDOC ---
ED HPI GENERAL MEDICAL PROBLEM - General Chief Complaint: Respiratory Problem Stated Complaint: cough Time Seen by Provider: 03/05/21 02:15 Source of Information: Reports: Patient History Limitations: Reports: No Limitations - History of Present Illness INITIAL COMMENTS - FREE TEXT/NARRATIVE: Mrs. Centeno is a very pleasant 30-year-old woman who now presents the ED stating that she has had 1 week of a nonproductive cough, on and off. Her symptoms are a bit worse at night or if she is supine. No associated fever, dyspnea, or wheezing, although she acknowledges that she has had some nasal congestion. She has a history of allergic rhinitis, for which she takes fluticasone (Flonase) and fexofenadine (Lida). The patient states that she had similar symptoms about a year ago. She states that she was told that she has postnasal drip. No prescriptions were given, but it was recommended that she start taking fluticasone. The patient states that she has been vaccinated for COVID-19. Here in the ED, the patient is found to be hemodynamically stable, afebrile, saturating 95% on room air. She appears to be quite comfortable on the gurney, in no acute distress. Prior to 1 week ago, the patient denies having a recent fever, chills, sore throat, ear pain, nasal or sinus congestion, cough, dyspnea, chest pain, palpitations, nausea, vomiting, constipation, diarrhea, abdominal pain, urinary symptoms, recent weight gain or weight loss, recent bloody bowel movements or black bowel movements, recent joint aches, headaches, or rashes. The patient's PCP is Dr. Cornelius Rivera. Her E Learning Coordinator is Dr. Priya Choi. - Related Data Allergies Allergy/AdvReac Type Severity Reaction Status Date / Time No Known Allergies Allergy Verified 03/05/21 02:16 Home Meds: Home Meds FLUoxetine [PROzac] 10 mg PO DAILY 02/11/20 [History] Fexofenadine [Lida] 30 mg PO DAILY 03/05/21 [History] Fluticasone Propionate [Flonase] 2 sprays NASBOTH DAILY 03/05/21 [History] Past Medical History HEENT History: Reports: Allergic Rhinitis - Infectious Disease History Infectious Disease History: Reports: Chicken Pox - Past Surgical History HEENT Surgical History: Reports: Oral Surgery (dental extractions) Female Surgical History: Reports: Section (x 2), Other (See Below) (Vaginal/hymen surgery) Social & Family History - Tobacco Use Tobacco Use Status *Q: Never Tobacco User Second Hand Smoke Exposure: No - Caffeine Use Caffeine Use: Reports: None - Alcohol Use Alcohol Use History: Yes Alcohol Use Frequency: Rarely - Recreational Drug Use Recreational Drug Use: No - Living Situation & Occupation Living situation: Reports: , with Spouse, with Family (2 kids) 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 ED EXAM, GENERAL - Physical Exam Exam: See Below Exam Limited By: No Limitations General Appearance: Alert, WD/WN, No Apparent Distress Eye Exam: Bilateral Eye: EOMI, Normal Inspection Ears: Normal External Exam, Normal Canal, Hearing Grossly Normal, Normal TMs Nose: Normal Inspection, Normal Mucosa, No Blood Throat/Mouth: Normal Inspection, Normal Lips, Normal Teeth, Normal Gums, Normal Oropharynx, Normal Voice, No Airway Compromise Head: Atraumatic, Normocephalic Neck: Normal Inspection, Supple, Non-Tender, Full Range of Motion. No: Lymphadenopathy (L), Lymphadenopathy (R) Respiratory/Chest: No Respiratory Distress, Lungs Clear, Normal Breath Sounds, No Accessory Muscle Use. No: Decreased Breath Sounds, Crackles, Rhonchi, Wheezing, Stridor, Prolonged Expiration Cardiovascular: Normal Peripheral Pulses, Regular Rate, Rhythm, No Edema, No Gallop, No JVD, No Murmur, No Rub Peripheral Pulses: 3+: Radial (L), Radial (R) GI/Abdominal: Normal Bowel Sounds, Soft, Non-Tender, No Organomegaly, No Distention, No Abnormal Bruit, No Mass Back Exam: Normal Inspection, Full Range of Motion, NT Extremities: Normal Inspection, Normal Range of Motion, No Pedal Edema, Normal Capillary Refill Neurological: Alert, Oriented, Normal Cognition, No Motor/Sensory Deficits Psychiatric: Normal Affect Skin Exam: Warm, Dry, Intact, Normal Color, No Rash Course - Vital Signs Last Recorded V/S: Last Vital Signs Temp 35.8 C L 03/05/21 02:08 Pulse 86 03/05/21 02:08 Resp 18 03/05/21 02:08 BP 119/71 03/05/21 02:08 Pulse Ox 95 03/05/21 02:08 - Re-Assessments/Exams Free Text/Narrative Re-Assessment/Exam: 03/05/21 02:37 As above, the patient has had a nonproductive cough on and off for the past week, associated with nasal congestion. Her symptoms are a bit worse at night or if she is supine. No associated fever, dyspnea, or wheezing. Her oxygen saturation here in the ED is 95% on room air, and her physical exam, including that of her lungs, is completely normal. I suspect that her cough is related to postnasal drip related to her allergic rhinitis, however, I have ordered a chest x-ray to rule out an infiltrate. Provided her chest x-ray is negative, I do not see an indication for blood work. 03/05/21 03:36 Two-view chest radiograph appears to be grossly normal. The cardiac silhouette is within normal limits. No pulmonary vascular congestion. No pleural effusions. No focal infiltrate. No pneumothorax. Formal read per the Radiologist pending. 03/05/21 03:38 Test results discussed with the patient. As above, the patient does not have pneumonia. I suspect that her cough is related to inadequately treated allergic rhinitis. Lida is already the strongest nonsedating antihistamine, however, she could consider switching her from fluticasone (Flonase) to mometasone (Nasonex), to see if that helps. Departure - Departure Time of Disposition: 03:39 Disposition: Home, Self-Care 01 Condition: Good Clinical Impression: Allergic rhinitis - Discharge Information *PRESCRIPTION DRUG MONITORING PROGRAM REVIEWED*: Not Applicable *COPY OF PRESCRIPTION DRUG MONITORING REPORT IN PATIENT MARYANN: Not Applicable Instructions: Allergic Rhinitis, Adult, [id number] Referrals: Cornelius Rivera MD [Primary Care Provider] - Priya Choi MD [Physician] - Forms: ED Department Discharge Additional Instructions: You were seen in the emergency room for 1 week of a nonproductive cough, on and off, worse at night. Work-up in the ER included a chest x-ray, which returned normal, with no suggestion of pneumonia. Based on your history, physical exam, and chest x-ray, the cause of your symptoms is most likely due to inadequately treated allergic rhinitis (seasonal allergies). As discussed, consider switching your current fluticasone (Flonase) to mometasone (Nasonex). We recommend that you continue to take Lida. If any other problems, please do not hesitate to return to the ER, or follow-up with your PCP, Dr. Cornelius Rivera. Sepsis Event Note (ED) - Evaluation Sepsis Screening Result: No Definite Risk - Focused Exam Vital Signs: Vital Signs Temp Pulse Resp BP Pulse Ox 03/05/21 02:08 35.8 C L 86 18 119/71 95
--- NOTE | 2021-03-05 05:58 | CR ---
Chest: 2 views of the chest were obtained. Comparison: No prior chest imaging is available. Heart size and mediastinum are normal. Lungs are clear with no acute parenchymal change. Bony structures are within normal limits. Impression: 1. Nothing acute is seen on 2 view chest x-ray. Diagnostic code #1
== END 2021-03-05 03:46 | disposition home or self-care (01) ==
LOC: JD.ED 01:59
DX: J30.9 Allergic rhinitis, unspecified (principal); Z79.899 Other long term (current) drug therapy
CPT/HCPCS: 71046; 71046-26; 99283; 99283-25